=== PATIENT | female | born 1975 | race Caucasian/White ===

== ENCOUNTER 2019-07-13 16:34 | Emergency (ER) | payer OTHER, SELFPAY ==
--- NOTE | 2019-07-13 16:58 | ER ---
Nurse's Notes [facility] Name: Musa Sharif Age: 44 yrs Sex: Female : 1975 Arrival Date: 07/13/2019 Time: 16:36 Bed Waiting Private MD: Ellie Tran H Diagnosis: Scabies Presentation: 07/13 16:46 Presenting complaint: Scabies rash x 5 months. Transition of care: patient was not hb received from another setting of care. Onset of symptoms is unknown. Risk Assessment: Do you want to hurt yourself or someone else? Patient reports no desire to harm self or others. Initial Sepsis Screen: Does the patient meet any 2 criteria? No. Patient's initial sepsis screen is negative. Does the patient have a suspected source of infection? No. Patient's initial sepsis screen is negative. Care prior to arrival: None. 16:46 Method Of Arrival: Ambulatory hb 16:46 Acuity: CHE 4 hb Historical: - Allergies: 16:47 Erythromycin; hb - PMHx: 16:47 Hypertension; Lupus; hb - PSHx: 16:47 ; Cholecystectomy; hb - Immunization history:: Adult Immunizations up to date. - Social history:: Smoking status: Patient/guardian denies using tobacco. - Ebola Screening: : No symptoms or risks identified at this time. Vital Signs: 16:47 BP 148 / 68; Pulse 88; Resp 16; Temp 97.8; Pulse Ox 100% on R/A; Weight 99.79 kg; hb Height 5 ft. 7 in. (170.18 cm); Pain 4/10; 16:47 Body Mass Index 34.46 (99.79 kg, 170.18 cm) hb ED Course: 16:36 Patient arrived in ED. mr 16:36 Ellie Tran DO is Private Physician. mr 16:47 Triage completed. hb 16:47 Arm band placed on. hb 16:51 Nena Seymour FNP-C is PHCP. snw 16:51 Richardson Robbins MD is Attending Physician. snw 16:52 PHCP role handed off by Nena Seymour FNP-C kb 16:52 Jessy Castillo FNP-C is PHCP. kb 17:15 Mcnair, Lila, RN is Primary Nurse. hb Administered Medications: No medications were administered Outcome: 16:57 Discharge ordered by . kb 17:15 Patient left the ED. hb Signatures: Jessy Castillo, ANABELL-C RESIDENTIAL SPECIALIST-Ckb Nena Seymour FNP-C RESIDENTIAL SPECIALIST-Csnw Kenia Ortiz mr Lila Mcnair, RN RN hb Corrections: (The following items were deleted from the chart) 16:51 16:47 BP 148 / 68; Pulse 88bpm; Resp 16bpm; Pulse Ox 100% RA; Temp 97.8F; 108.86 kg; hb Height 5 ft. 7 in.; BMI: 37.5; Pain 4/10; hb
--- NOTE | 2019-07-13 16:58 | EDPHYS ---
Physician Documentation [facility] Name: Musa Sharif Age: 44 yrs Sex: Female : 1975 Arrival Date: 07/13/2019 Time: 16:36 Bed Waiting Private MD: Ellie Tran H ED Physician Richardson Robbins HPI: 07/13 17:26 This 44 yrs old Female presents to ER via Ambulatory with complaints of Rash. kb 17:26 The patient's rash thought to be caused by scabies. The rash is located on the body kb diffusely. The rash can be described as crusted, erythematous, patchy. Onset: The symptoms/episode began/occurred 1 year(s) ago. Associated signs and symptoms: Pertinent positives: fever. Severity of symptoms: At their worst the symptoms were severe in the emergency department the symptoms are unchanged. Treatment given at home: permetherine. The patient has not experienced similar symptoms in the past. The patient has not recently seen a physician. Pt reports she got scabies while in correction last July. States she has tried permetherine cream multiple times without relief and tried the ivermectin pills (one dose Q week for 3 weeks). Requests admission for scabies. EDucated that there is not an indication for admission for scabies that have been resistant to previous treatment. Pt has looked on CDC and wants the 7 dose course of ivermectin. Historical: - Allergies: 16:47 Erythromycin; hb - PMHx: 16:47 Hypertension; Lupus; hb - PSHx: 16:47 ; Cholecystectomy; hb - Immunization history:: Adult Immunizations up to date. - Social history:: Smoking status: Patient/guardian denies using tobacco. - Ebola Screening: : No symptoms or risks identified at this time. ROS: 17:29 Constitutional: Negative for fever, chills, and weight loss, ENT: Negative for injury, kb pain, and discharge, Neck: Negative for injury, pain, and swelling, Cardiovascular: Negative for chest pain, palpitations, and edema, Respiratory: Negative for shortness of breath, cough, wheezing, and pleuritic chest pain, Abdomen/GI: Negative for abdominal pain, nausea, vomiting, diarrhea, and constipation, MS/Extremity: Negative for injury and deformity, Neuro: Negative for headache, weakness, numbness, tingling, and seizure. 17:29 Skin: Positive for rash, diffusely. Exam: 17:29 Constitutional: This is a well developed, well nourished patient who is awake, alert, kb and in no acute distress. Head/Face: Normocephalic, atraumatic. ENT: Nares patent. No nasal discharge, no septal abnormalities noted. Tympanic membranes are normal and external auditory canals are clear. Oropharynx with no redness, swelling, or masses, exudates, or evidence of obstruction, uvula midline. Mucous membranes moist. Neck: Trachea midline, no thyromegaly or masses palpated, and no cervical lymphadenopathy. Supple, full range of motion without nuchal rigidity, or vertebral point tenderness. No Meningismus. Chest/axilla: Normal chest wall appearance and motion. Nontender with no deformity. No lesions are appreciated. Cardiovascular: Regular rate and rhythm with a normal S1 and S2. No gallops, murmurs, or rubs. Normal PMI, no JVD. No pulse deficits. Respiratory: Lungs have equal breath sounds bilaterally, clear to auscultation and percussion. No rales, rhonchi or wheezes noted. No increased work of breathing, no retractions or nasal flaring. Abdomen/GI: Soft, non-tender, with normal bowel sounds. No distension or tympany. No guarding or rebound. No evidence of tenderness throughout. MS/ Extremity: Pulses equal, no cyanosis. Neurovascular intact. Full, normal range of motion. Neuro: Awake and alert, GCS 15, oriented to person, place, time, and situation. Cranial nerves II-XII grossly intact. Motor strength 5/5 in all extremities. Sensory grossly intact. Cerebellar exam normal. Normal gait. 17:29 Skin: scabies, and is diffusely located. Vital Signs: 16:47 BP 148 / 68; Pulse 88; Resp 16; Temp 97.8; Pulse Ox 100% on R/A; Weight 99.79 kg; hb Height 5 ft. 7 in. (170.18 cm); Pain 4/10; 16:47 Body Mass Index 34.46 (99.79 kg, 170.18 cm) hb MDM: 16:57 Patient medically screened. kb 17:29 Data reviewed: vital signs, nurses notes. Data interpreted: Pulse oximetry: on room air kb is 100 %. Interpretation: normal. Counseling: I had a detailed discussion with the patient and/or guardian regarding: the historical points, exam findings, and any diagnostic results supporting the discharge/admit diagnosis, the need for outpatient follow up, a certified cytotechnologist, to return to the emergency department if symptoms worsen or persist or if there are any questions or concerns that arise at home. Administered Medications: No medications were administered Disposition: 18:41 Co-signature as Attending Physician, Richardson Robbins MD. rn Disposition: 07/13/19 16:57 Discharged to Home. Impression: Scabies. - Condition is Stable. - Discharge Instructions: Scabies, Adult. - Prescriptions for ivermectin 3 mg Oral tablet - take 6 tablets by ORAL route as directed Take dose on days 1,2,8,9,15,22, and 29; 42 tablet. - Medication Reconciliation Form, Thank You Letter, Antibiotic Education, Prescription Opioid Use form. - Follow up: Emergency Department; When: As needed; Reason: Worsening of condition. Follow up: Private Physician; When: 2 - 3 days; Reason: Recheck today's complaints, Continuance of care, Re-evaluation by your physician. Signatures: Jessy Castillo, PRIVATE BANKER-C PRIVATE BANKER-Ckb Richardson Robbins MD MD rn Baxter, Heather, RN RN hb Corrections: (The following items were deleted from the chart) 17:15 16:57 07/13/2019 16:57 Discharged to Home. Impression: Scabies. Condition is Stable. hb Forms are Medication Reconciliation Form, Thank You Letter, Antibiotic Education, Prescription Opioid Use. Follow up: Emergency Department; When: As needed; Reason: Worsening of condition. Follow up: Private Physician; When: 2 - 3 days; Reason: Recheck today's complaints, Continuance of care, Re-evaluation by your physician. kb
[2019-07-13 17:20] VITALS: BP 148/68; TEMP 97.8; O2SAT 100
== END 2019-07-13 17:15 | disposition home or self-care (01) ==
LOC: ER 16:34
DX: B86 Scabies (principal); I10 Essential (primary) hypertension; Z88.3 Allergy status to other anti-infective agents
CPT/HCPCS: 99281

== ENCOUNTER 2020-10-03 17:46 | Emergency (ER) | payer SELFPAY ==
--- NOTE | 2020-10-03 18:21 | EDPHYS ---
Physician Documentation [facility] Name: Musa Sharif Age: 45 yrs Sex: Female : 1975 Arrival Date: 10/03/2020 Time: 17:47 Bed Waiting Private MD: ED Physician Chetan Pierce HPI: 10/03 19:43 This 45 yrs old Female presents to ER via Ambulatory with complaints of snw Scabies. 19:43 Onset: The symptoms/episode began/occurred gradually, and became persistent. Associated snw signs and symptoms: Pertinent positives: pruritic rash. Modifying factors: the patient symptoms are aggravated by dx of Lupus. The patient has experienced similar episodes in the past, chronically. It is unknown whether or not the patient has recently seen a physician. Pt states she is using Elimite every day, Ivermectin weekly for a long time and also taking daily bleach baths and placing plastic gloves on hands and feet. Encouraged pt to see Derm. Stop anti-parasitic medications as they are toxic. Pt swears she has scabies and is upset I will not give script for Elimite and Ivermectin. Historical: - Allergies: 17:49 Erythromycin; sv - PMHx: 17:49 Hypertension; Lupus; sv - PSHx: 17:49 ; Cholecystectomy; sv ROS: 19:43 Constitutional: Negative for fever, chills, and weight loss, Eyes: Negative for injury, snw pain, redness, and discharge, ENT: Negative for injury, pain, and discharge, Neck: Negative for injury, pain, and swelling, Cardiovascular: Negative for chest pain, palpitations, and edema, Respiratory: Negative for shortness of breath, cough, wheezing, and pleuritic chest pain, Abdomen/GI: Negative for abdominal pain, nausea, vomiting, diarrhea, and constipation, Back: Negative for injury and pain, : Negative for injury, bleeding, discharge, and swelling, MS/Extremity: Negative for injury and deformity, Neuro: Negative for headache, weakness, numbness, tingling, and seizure, Psych: Negative for depression, anxiety, suicide ideation, homicidal ideation, and hallucinations. 19:43 Skin: Positive for rash. Exam: 19:42 Head/Face: Normocephalic, atraumatic. Eyes: Pupils equal round and reactive to light, snw extra-ocular motions intact. Lids and lashes normal. Conjunctiva and sclera are non-icteric and not injected. Cornea within normal limits. Periorbital areas with no swelling, redness, or edema. ENT: Nares patent. No nasal discharge, no septal abnormalities noted. Tympanic membranes are normal and external auditory canals are clear. Oropharynx with no redness, swelling, or masses, exudates, or evidence of obstruction, uvula midline. Mucous membranes moist. Neck: Trachea midline, no thyromegaly or masses palpated, and no cervical lymphadenopathy. Supple, full range of motion without nuchal rigidity, or vertebral point tenderness. No Meningismus. Chest/axilla: Normal chest wall appearance and motion. Nontender with no deformity. No lesions are appreciated. Cardiovascular: Regular rate and rhythm with a normal S1 and S2. No gallops, murmurs, or rubs. Normal PMI, no JVD. No pulse deficits. Respiratory: Lungs have equal breath sounds bilaterally, clear to auscultation and percussion. No rales, rhonchi or wheezes noted. No increased work of breathing, no retractions or nasal flaring. Abdomen/GI: Soft, non-tender, with normal bowel sounds. No distension or tympany. No guarding or rebound. No evidence of tenderness throughout. Back: No spinal tenderness. No costovertebral tenderness. Full range of motion. MS/ Extremity: Pulses equal, no cyanosis. Neurovascular intact. Full, normal range of motion. Neuro: Awake and alert, GCS 15, oriented to person, place, time, and situation. Cranial nerves II-XII grossly intact. Motor strength 5/5 in all extremities. Sensory grossly intact. Cerebellar exam normal. Normal gait. Psych: Awake, alert, with orientation to person, place and time. Behavior, mood, and affect are within normal limits. 19:42 Constitutional: The patient appears alert, awake, anxious. 19:42 Skin: Appearance: normal except for affected area, in heated creases of body pt has bumpy, erythematous, pruritic rash.. Vital Signs: 18:09 BP 141 / 72; Pulse 86; Resp 18; Pulse Ox 99% ; sv MDM: 18:20 Patient medically screened. snw 19:47 Data reviewed: vital signs, nurses notes. Data interpreted: Pulse oximetry: on room air snw is 99 %. Interpretation: normal. Counseling: I had a detailed discussion with the patient and/or guardian regarding: the historical points, exam findings, and any diagnostic results supporting the discharge/admit diagnosis, the need for outpatient follow up, to return to the emergency department if symptoms worsen or persist or if there are any questions or concerns that arise at home. Special discussion: I have referred the patient to see his PCP for further evaluation of high blood pressure. Based on the history and exam findings, there is no indication for further emergent testing or inpatient evaluation. I discussed with the patient/guardian the need to see the basket maker for further evaluation of the symptoms. I discussed with the patient/guardian the need to see the primary care provider for further evaluation of the symptoms. Administered Medications: 18:27 Drug: DiFLUcan 200 mg Route: PO; sv 18:27 Follow up: Response: Medication administered at discharge. sv Point of Care Testing: Blood Glucose: 18:19 Blood Glucose: 94 mg/dL; sv Ranges: Critical Glucose Levels:Adult <50 mg/dl or >400 mg/dl <40 mg/dl or >180 mg/dl Disposition: 10/04 07:56 Co-signature as Attending Physician, Chetan Pierce MD I agree with the assessment and kdr plan of care. Disposition: 10/03/20 18:20 Discharged to Home. Impression: Candidiasis. - Condition is Stable. - Discharge Instructions: Skin Yeast Infection. - Prescriptions for Vistaril 50 mg Oral capsule - take 1 capsule by ORAL route 4 times per day; 30 capsule. - Medication Reconciliation Form, Thank You Letter, Antibiotic Education, Prescription Opioid Use form. - Follow up: Bentley Reddy MD; When: 2 - 3 days; Reason: Recheck today's complaints, Continuance of care, Re-evaluation by your physician. Follow up: Connor Knott MD; When: 2 - 3 days; Reason: Recheck today's complaints, Continuance of care. Signatures: Pinky Lee RN RN sv Rittger, Kevin, MD MD kdr Nena Cristobal, ASSET AVAILABILITY LEADER-C ASSET AVAILABILITY LEADER-Csnw Corrections: (The following items were deleted from the chart) 10/03 18:27 18:20 10/03/2020 18:20 Discharged to Home. Impression: Candidiasis. Condition is sv Stable. Forms are Medication Reconciliation Form, Thank You Letter, Antibiotic Education, Prescription Opioid Use. Follow up: Bentley Reddy; When: 2 - 3 days; Reason: Recheck today's complaints, Continuance of care, Re-evaluation by your physician. Follow up: Connor Knott; When: 2 - 3 days; Reason: Recheck today's complaints, Continuance of care. snw
--- NOTE | 2020-10-03 18:21 | ER ---
Nurse's Notes [facility] Name: Musa Sharif Age: 45 yrs Sex: Female : 1975 Arrival Date: 10/03/2020 Time: 17:47 Bed Waiting Private MD: Diagnosis: Candidiasis Presentation: 10/03 17:49 Risk Assessment: Do you want to hurt yourself or someone else? Patient reports no sv desire to harm self or others. 17:49 Method Of Arrival: Ambulatory sv 17:49 Acuity: CHE 5 sv 18:08 Coronavirus screen: Client denies travel out of the [place] in the last 14 days. At this sv time, the client does not indicate any symptoms associated with coronavirus-19. Ebola Screen: No symptoms or risks identified at this time. Onset of symptoms was September 2020. 18:09 Chief complaint: Patient states: rash to under breasts, groin, neck has been ongoing sv since the beginning of Sep. Her PCP wasn't able to see her and give her a prescription. 18:09 Initial Sepsis Screen: Does the patient meet any 2 criteria? No. Patient's initial sv sepsis screen is negative. Does the patient have a suspected source of infection? No. Patient's initial sepsis screen is negative. Triage Assessment: 18:12 General: Appears in no apparent distress. uncomfortable, Behavior is calm, cooperative, sv appropriate for age. Neuro: Level of Consciousness is awake, alert, obeys commands, Oriented to person, place, time, situation, Gait is steady. Respiratory: Respiratory effort is even, unlabored, Respiratory pattern is regular, symmetrical. Derm: Reports rash. Historical: - Allergies: 17:49 Erythromycin; sv - PMHx: 17:49 Hypertension; Lupus; sv - PSHx: 17:49 ; Cholecystectomy; sv Screenin:49 Abuse screen: Denies threats or abuse. Denies injuries from another. Nutritional sv screening: No deficits noted. Tuberculosis screening: No symptoms or risk factors identified. Fall Risk None identified. Assessment: 18:27 Reassessment: Patient appears in no apparent distress at this time. No changes from sv previously documented assessment. Patient and/or family updated on plan of care and expected duration. Pain level reassessed. Patient is alert, oriented x 3, equal unlabored respirations, skin warm/dry/pink. Vital Signs: 18:09 BP 141 / 72; Pulse 86; Resp 18; Pulse Ox 99% ; sv ED Course: 17:47 Patient arrived in ED. rg4 17:49 Triage completed. sv 17:49 Arm band placed on. sv 17:49 Patient has correct armband on for positive identification. sv 18:12 Nurse Practitioner and/or Physician Engineering Scientist to see patient. sv 18:19 Nena Cristobal FNP-C is [facility]. snw 18:19 Chetan Pierce MD is Attending Physician. snw 18:19 Bentley Reddy MD is Referral Physician. snw 18:20 Connor Knott MD is Referral Physician. snw 18:26 Pinky Lee, DHARMESH is Primary Nurse. sv 18:27 No provider procedures requiring assistance completed. Patient did not have IV access sv during this emergency room visit. Administered Medications: 18:27 Drug: DiFLUcan 200 mg Route: PO; sv 18:27 Follow up: Response: Medication administered at discharge. sv Point of Care Testing: Blood Glucose: 18:19 Blood Glucose: 94 mg/dL; sv Ranges: Outcome: 18:20 Discharge ordered by MD. snw 18:27 Patient left the ED. sv 18:27 Discharged to home ambulatory. sv 18:27 Condition: stable 18:27 Discharge instructions given to patient, Instructed on discharge instructions, follow up and referral plans. medication usage, Demonstrated understanding of instructions, follow-up care, medications, Prescriptions given X 1. Signatures: Pinky Lee RN RN Nena Cristobal FNP-C FNP-Ani Mckeon rg4
[2020-10-03] MEDS ORDERED: FLUCONAZOLE 100 MG TAB ONE (18:38)
[2020-10-03 20:25] VITALS: BP 141/72; O2SAT 99
== END 2020-10-03 18:27 | disposition home or self-care (01) ==
LOC: ER 17:46
DX: B37.9 Candidiasis, unspecified (principal); I10 Essential (primary) hypertension; Z88.3 Allergy status to other anti-infective agents
CPT/HCPCS: 82947; 99283

== ENCOUNTER 2021-06-08 21:23 | Emergency (ER) | payer SELFPAY ==
[2021-06-09] MEDS ORDERED: METHYLPREDNISOLONE 40 MG INJ ONE (05:25)
[2021-06-09] MEDS ORDERED: NA CHLORIDE 0.9% 1,000 ML ONE (05:25)
[2021-06-09 06:00] LABS: Absolute Lymphocytes (CBC) 0.9 K/uL (0.7-4.9); Basophils % 0.2 % (0-1.3); Hematocrit 38.8 % (36.0-45.0); MPV 8.2 fL (7.6-11.3); RBC Red Blood Cell Count 4.57 M/uL (3.86-4.86)
[2021-06-09] MEDS ORDERED: ALBUTEROL INHALER 60 PUFF/8 GM IH ONE (06:01)
[2021-06-09] MEDS ORDERED: ACETAMINOPHEN 500 MG TAB ONE (06:13)
[2021-06-09 06:17] LABS: ALT/SGPT 26 U/L (12-78); AST/SGOT 29 U/L (15-37); Albumin 4.3 g/dL (3.4-5.0); Alkaline Phosphatase 86 U/L (45-117); BUN Blood Urea Nitrogen 10 mg/dL (7-18); Bicarbonate 25 mmol/L (21-32); Bilirubin Direct < 0.1 mg/dL (0-0.2); Bilirubin Total 0.2 mg/dL (0.2-1.0); Glucose Level 93 mg/dL (74-106); Magnesium 2.1 mg/dL (1.8-2.4); NT PRO-BNP 168 pg/mL (<125); Protein, Total 8.6 g/dL (6.4-8.2); Sodium Level 137 mmol/L (136-145); Troponin (Emerg Dept Use Only) < 0.02 ng/mL (0.0-0.045)
[2021-06-09 06:18] LABS: Potassium 2.9 mmol/L (3.5-5.1)
[2021-06-09 07:03] LABS: Protime INR 1.46
[2021-06-09] MEDS ORDERED: POTASSIUM CL SA 10 MEQ TAB PO ONE (07:22)
--- NOTE | 2021-06-09 09:12 | RAD REPORT ---
EXAM DESCRIPTION: Yovany Single View06/09/2021 5:31 am CLINICAL HISTORY: cough COMPARISON: 2015 FINDINGS: The lungs appear clear of acute infiltrate. The heart is normal size IMPRESSION: No acute abnormalities displayed
--- NOTE | 2021-06-09 09:23 | RAD REPORT ---
EXAM DESCRIPTION: CT - Chest For Pe Angio - 06/09/2021 9:01 am CLINICAL HISTORY: sob COMPARISON: None. TECHNIQUE: Dynamically enhanced axial 3 mm thick images of the chest were obtained during administra tion of <100> mL Isovue 370 IV contrast. Coronal and oblique reconstruction images were generated and reviewed. Exam utilizes a protocol for optimal evaluation of pulmonary arterial tree. Maximum intensity projections 3D imaging was utilized All CT scans are performed using dose optimization technique as appropriate and may include automated exposure control or mA/KV adjustment according to patient size. FINDINGS: A pulmonary embolus is not seen. A thoracic aortic aneurysm is not noted. A pleural effusion is not seen. A pericardial effusion is not seen. Minimal right upper lobe ground-glass opacities IMPRESSION: Negative for a pulmonary embolism. Minimal right upper lobe ground-glass opacities are nonspecific and may indicate minimal Covid pneumo alicia or pneumonitis
[2021-06-09] MEDS ORDERED: NA CHLORIDE 0.9% 250 ML ONE (11:22)
[2021-06-09] MEDS ORDERED: CASIRIVIMAB/IMDEVIMAB 10 ML VIAL ONE (11:22)
--- NOTE | 2021-06-09 12:52 | ER ---
Nurse's Notes [facility] Name: Musa Sharif Age: 46 yrs Sex: Female : 1975 Arrival Date: 06/08/2021 Time: 21:25 Bed 13 Private MD: Diagnosis: Other specified viral diseases-COVID -19 Presentation: 06/08 22:40 Chief complaint: Patient states: sore throat , short of breath x 2 days. Coronavirus da3 screen: Client denies travel out of the [place] in the last 14 days. Client presents with at least one sign or symptom that may indicate coronavirus-19. Ebola Screen: No symptoms or risks identified at this time. 22:40 Method Of Arrival: Ambulatory da3 22:40 Acuity: CHE 3 da3 Triage Assessment: 22:42 General: Appears in no apparent distress. Behavior is calm, cooperative. da3 Historical: - Allergies: 06/09 12:09 Erythromycin; vg1 - PMHx: 12:09 Hypertension; Lupus; vg1 - Immunization history:: Client reports having NOT received the Covid vaccine. Screenin:30 Abuse screen: Denies threats or abuse. Nutritional screening: No deficits noted. bb Tuberculosis screening: No symptoms or risk factors identified. Fall Risk None identified. Assessment: 03:30 General: Appears in no apparent distress. uncomfortable, ill, Behavior is calm, bb cooperative. Pain: Complains of pain in all over. Neuro: Level of Consciousness is awake, alert, obeys commands, Oriented to person, place, time, situation. Cardiovascular: Capillary refill < 3 seconds Patient's skin is warm and dry. Respiratory: Reports cough that is Respiratory effort is even, unlabored, Respiratory pattern is regular. GI: No deficits noted. Derm: Skin is pink, warm \\T\\ dry. Musculoskeletal: Circulation, motion, and sensation intact. 05:45 Reassessment: No changes from previously documented assessment. ch4 07:02 Reassessment: Patient is alert, oriented x 3, equal unlabored respirations, skin bb warm/dry/pink. pt resting quietly, IV site intact with fluids running. 07:40 Reassessment: Patient appears in no apparent distress at this time. Patient and/or aj2 family updated on plan of care and expected duration. Pain level reassessed. Patient is alert, oriented x 3, equal unlabored respirations, skin warm/dry/pink. 12:06 Reassessment: Patient appears in no apparent distress at this time. No changes from vg1 previously documented assessment. Patient and/or family updated on plan of care and expected duration. Pain level reassessed. Patient is alert, oriented x 3, equal unlabored respirations, skin warm/dry/pink. Pt c/o body aches/headache, rates pain 8/10. Provider notified. Respiratory: Airway is patent Respiratory effort is even, unlabored. Derm: Skin is intact, Skin is pink, warm \\T\\ dry. 12:58 Reassessment: Patient appears in no apparent distress at this time. Patient and/or vg1 family updated on plan of care and expected duration. Pain level reassessed. Patient is alert, oriented x 3, equal unlabored respirations, skin warm/dry/pink. Pt up for d/c, currently waiting for REGEN COV to complete, then one hour of monitoring before pt is released home. 14:37 Reassessment: Patient appears in no apparent distress at this time. Patient and/or vg1 family updated on plan of care and expected duration. Pain level reassessed. Patient is alert, oriented x 3, equal unlabored respirations, skin warm/dry/pink. Vital Signs: 06/08 22:42 BP 117 / 74; Pulse 85; Resp 20; Temp 98.1; Pulse Ox 100% on R/A; da3 06/09 04:42 BP 185 / 87; Pulse 91; Resp 16; Temp 99.5(TE); Pulse Ox 100% on R/A; tt3 05:30 BP 151 / 79; Pulse 86; Resp 15; ch4 05:38 Resp 15; Pulse Ox 99% on R/A; ch4 07:03 BP 158 / 75; Pulse 97; Resp 18 S; Pulse Ox 100% on R/A; bb 07:23 BP 147 / 76; Pulse 84; Resp 16; Pulse Ox 98% on R/A; dh3 11:45 BP 146 / 82; Pulse 80; Resp 20; Pulse Ox 99% on R/A; vg1 12:00 BP 144 / 80; Pulse 82; Resp 22; Pulse Ox 98% on R/A; vg1 ED Course: 06/08 21:25 Patient arrived in ED. wm 22:42 Triage completed. da3 06/09 03:30 Patient has correct armband on for positive identification. bb 03:39 Jorge Purvis MD is Attending Physician. [facility] 04:43 Dinorah Jacobo RN is Primary Nurse. bb 05:05 Basic Metabolic Panel Sent. ch4 05:26 XRAY Chest (1 view) Sent. ch4 05:27 Throat Culture Sent. ch4 05:32 XRAY Chest (1 view) In Process Unspecified. EDMS 05:44 COVID-19 : Document "Date of Symptom Onset" if Symptomatic. Sent. ch4 05:44 Inserted saline lock: 24 gauge in right wrist, using aseptic technique. ch4 07:42 Attending Physician role handed off by Jorge Purvis MD ma2 07:42 Kleber Vazquez MD is Attending Physician. ma2 07:45 Missed attempt(s): 20 gauge in right antecubital area. Bleeding controlled, band aid dh3 applied, catheter tip intact. 08:05 Missed attempt(s): 20 gauge in left antecubital area. Bleeding controlled, band aid dh3 applied, catheter tip intact. 08:58 Inserted saline lock: 22 gauge in right antecubital area, using aseptic technique. ss ,using aseptic technique. ultrasound guide. Blood collected. 09:00 CT Chest For PE Angio In Process Unspecified. EDMS 10:20 Inserted U/S guided by Jamila BARROSO. aj2 12:10 No provider procedures requiring assistance completed. vg1 14:37 IV discontinued, intact, bleeding controlled, No redness/swelling at site. Pressure vg1 dressing applied. Administered Medications: 05:38 Drug: Albuterol HFA Inhaler 2 puffs Route: Inhalation; ch4 07:02 Follow up: Response: No adverse reaction bb 05:43 Drug: NS 0.9% 1000 ml Route: IV; Rate: 1000 ml; Site: right wrist; ch4 05:43 Drug: SOLU-Medrol (methylPrednisoLONE) 80 mg Route: IVP; Site: right wrist; ch4 07:02 Follow up: Response: No adverse reaction bb 05:51 Drug: Tylenol 1000 mg Route: PO; ch4 07:02 Follow up: Response: No adverse reaction bb 07:02 Drug: Potassium Chloride 40 mEq Route: PO; bb 12:06 Follow up: Response: No adverse reaction vg1 12:05 Drug: REGEN-COV Dose Pack 120 mg/mL-120 mg/mL (EUA) 1 application Route: IV; Rate: 120 vg1 mg/hr; Site: right forearm; 13:05 Follow up: IV Status: Completed infusion; IV Intake: 260ml vg1 Intake: 13:05 IV: 260ml; Total: 260ml. vg1 Outcome: 12:51 Discharge ordered by . [email or web address] 14:37 Discharged to home ambulatory. vg1 14:37 Condition: stable 14:37 Discharge instructions given to patient, Instructed on discharge instructions, follow up and referral plans. medication usage, Demonstrated understanding of instructions, follow-up care, medications, Prescriptions given X 4. 14:38 Patient left the ED. vg1 Signatures: Dispatcher [employer] EDMS Dinorah Jacobo RN RN Jamila Mcghee RN RN ss Herrera, Deanna 3 Kleber Vazquez MD MD ma2 Garcia, Victoria, RN RN vg1 Jorge Purvis MD MD 7 Sudeep Chu 3 Rita Amador David, RN RN da3 Johana Muller RN RN ch4 Sonam Dhillon2 Corrections: (The following items were deleted from the chart) 08:18 08:17 Missed attempt(s): 20 gauge in right antecubital area. Bleeding controlled, band dh3 aid applied, catheter tip intact. dh3 12:09 12:06 Reassessment: Patient appears in no apparent distress at this time. No changes vg1 from previously documented assessment. Patient and/or family updated on plan of care and expected duration. Pain level reassessed. Patient is alert, oriented x 3, equal unlabored respirations, skin warm/dry/pink. vg1 12:09 12:06 Respiratory: Airway is patent Respiratory effort is even, unlabored, vg1 vg1
--- NOTE | 2021-06-09 12:52 | EDPHYS ---
Physician Documentation [facility] Name: Musa Sharif Age: 46 yrs Sex: Female : 1975 Arrival Date: 06/08/2021 Time: 21:25 Bed 13 Private MD: ED Physician Kleber Vazquez HPI: 06/09 04:45 This 46 yrs old Female presents to ER via Ambulatory with complaints of mh7 Fever, BODY ACHES, FEELS LIKE "IM BREATHING THRU A STRAW". 04:45 The patient reports fever, not measured (subjective). Onset: The symptoms/episode mh7 began/occurred 3 day(s) ago. Modifying factors: The patient has had contact with sick son. Associated signs and symptoms: Pertinent positives: cough, that is dry, myalgias, runny nose, shortness of breath, Pertinent negatives: abdominal pain, altered mental status, arthralgias, backache, chest pain, chills, diarrhea, earache, headache, hemoptysis, nausea, night sweats, sinus drainage, skin rash, swelling, vomiting. Severity of symptoms: At their worst the symptoms were moderate 2 day(s) ago, in the emergency department the symptoms are unchanged. Historical: - Allergies: 12:09 Erythromycin; vg1 - PMHx: 12:09 Hypertension; Lupus; vg1 - Immunization history:: Client reports having NOT received the Covid vaccine. ROS: 04:45 Eyes: Negative for injury, pain, redness, and discharge, Neck: Negative for injury, mh7 pain, and swelling, Cardiovascular: Negative for chest pain, palpitations, and edema, Abdomen/GI: Negative for abdominal pain, nausea, vomiting, diarrhea, and constipation, Back: Negative for injury and pain, : Negative for injury, bleeding, discharge, and swelling, MS/Extremity: Negative for injury and deformity, Skin: Negative for injury, rash, and discoloration, Neuro: Negative for headache, weakness, numbness, tingling, and seizure, Psych: Negative for depression, anxiety, suicide ideation, homicidal ideation, and hallucinations, Allergy/Immunology: Negative for hives, rash, and allergies, Endocrine: Negative for neck swelling, polydipsia, polyuria, polyphagia, and marked weight changes, Hematologic/Lymphatic: Negative for swollen nodes, abnormal bleeding, and unusual bruising. Exam: 04:45 Head/Face: Normocephalic, atraumatic. Eyes: Pupils equal round and reactive to light, mh7 extra-ocular motions intact. Lids and lashes normal. Conjunctiva and sclera are non-icteric and not injected. Cornea within normal limits. Periorbital areas with no swelling, redness, or edema. ENT: Nares patent. No nasal discharge, no septal abnormalities noted. Tympanic membranes are normal and external auditory canals are clear. Oropharynx with no redness, swelling, or masses, exudates, or evidence of obstruction, uvula midline. Mucous membranes moist. Neck: Trachea midline, no thyromegaly or masses palpated, and no cervical lymphadenopathy. Supple, full range of motion without nuchal rigidity, or vertebral point tenderness. No Meningismus. Chest/axilla: Normal chest wall appearance and motion. Nontender with no deformity. No lesions are appreciated. Cardiovascular: Regular rate and rhythm with a normal S1 and S2. No gallops, murmurs, or rubs. Normal PMI, no JVD. No pulse deficits. Respiratory: Lungs have equal breath sounds bilaterally, clear to auscultation and percussion. No rales, rhonchi or wheezes noted. No increased work of breathing, no retractions or nasal flaring. Abdomen/GI: Soft, non-tender, with normal bowel sounds. No distension or tympany. No guarding or rebound. No evidence of tenderness throughout. Back: No spinal tenderness. No costovertebral tenderness. Full range of motion. Skin: Warm, dry with normal turgor. Normal color with no rashes, no lesions, and no evidence of cellulitis. MS/ Extremity: Pulses equal, no cyanosis. Neurovascular intact. Full, normal range of motion. Neuro: Awake and alert, GCS 15, oriented to person, place, time, and situation. Cranial nerves II-XII grossly intact. Motor strength 5/5 in all extremities. Sensory grossly intact. Cerebellar exam normal. Normal gait. Psych: Awake, alert, with orientation to person, place and time. Behavior, mood, and affect are within normal limits. 04:45 Constitutional: The patient appears in no acute distress, alert, awake, uncomfortable. Vital Signs: 06/08 22:42 BP 117 / 74; Pulse 85; Resp 20; Temp 98.1; Pulse Ox 100% on R/A; da3 06/09 04:42 BP 185 / 87; Pulse 91; Resp 16; Temp 99.5(TE); Pulse Ox 100% on R/A; tt3 05:30 BP 151 / 79; Pulse 86; Resp 15; ch4 05:38 Resp 15; Pulse Ox 99% on R/A; ch4 07:03 BP 158 / 75; Pulse 97; Resp 18 S; Pulse Ox 100% on R/A; bb 07:23 BP 147 / 76; Pulse 84; Resp 16; Pulse Ox 98% on R/A; dh3 11:45 BP 146 / 82; Pulse 80; Resp 20; Pulse Ox 99% on R/A; vg1 12:00 BP 144 / 80; Pulse 82; Resp 22; Pulse Ox 98% on R/A; vg1 MDM: 07:09 Transition of care: After a detail discussion of the patient's case, care is 7 transferred to Kleber Vazquez MD. 12:51 Differential diagnosis: viral Infection, URI, bronchitis, pneumonia. Data reviewed: [email or web address] vital signs, nurses notes. Counseling: I had a detailed discussion with the patient and/or guardian regarding: the historical points, exam findings, and any diagnostic results supporting the discharge/admit diagnosis, the presence of at least one elevated blood pressure reading (>120/80) during this emergency department visit, the need for outpatient follow up. Response to treatment: the patient's symptoms have markedly improved after treatment. 12:51 Patient medically screened. [email or web address] 06/08 22:46 Order name: Flu; Complete Time: 03:40 [facility] 06/08 22:46 Order name: Strep; Complete Time: 03:40 [facility] 06/08 22:49 Order name: COVID-19 : Document "Date of Symptom Onset" if Symptomatic. [facility] 06/09 00:13 Order name: Throat Culture [facility] 06/09 00:15 Order name: SARS-COV-2 RT PCR; Complete Time: 03:40 [facility] 06/09 04:57 Order name: Basic Metabolic Panel [facility] 06/09 04:57 Order name: CBC with Diff; Complete Time: 06:18 [facility] 06/09 04:57 Order name: LFT's; Complete Time: 06:24 [facility] 06/09 04:57 Order name: Magnesium; Complete Time: 06:24 7 06/09 04:57 Order name: NT PRO-BNP; Complete Time: 06:24 7 06/09 04:57 Order name: PT-INR; Complete Time: 07:17 7 06/09 04:57 Order name: Troponin (emerg Dept Use Only); Complete Time: 06:24 7 06/09 04:57 Order name: Basic Metabolic Panel; Complete Time: 06:24 EDMS 06/08 22:46 Order name: Droplet/Contact Precautions; Complete Time: 05:04 da3 06/08 22:46 Order name: Labs collected and sent; Complete Time: 05:04 da3 06/08 22:46 Order name: O2 Per Protocol; Complete Time: 05:04 3 06/09 04:57 Order name: XRAY Chest (1 view); Complete Time: 09:27 7 06/09 04:57 Order name: EKG; Complete Time: 04:58 7 06/09 04:57 Order name: Lactate; Complete Time: 06:24 7 06/09 04:57 Order name: Procalcitonin; Complete Time: 06:53 7 06/09 06:57 Order name: D-Dimer; Complete Time: 07:17 EDMS 06/09 07:17 Order name: CT Chest For PE Angio; Complete Time: 09:27 tn2 06/09 04:57 Order name: Cardiac monitoring; Complete Time: 05:05 7 06/09 04:57 Order name: EKG - Nurse/Tech; Complete Time: 05:26 7 06/09 04:57 Order name: IV Saline Lock; Complete Time: 05:04 7 06/09 04:57 Order name: O2 Sat Monitoring; Complete Time: 05:05 mh7 Administered Medications: 05:38 Drug: Albuterol HFA Inhaler 2 puffs Route: Inhalation; ch4 07:02 Follow up: Response: No adverse reaction bb 05:43 Drug: NS 0.9% 1000 ml Route: IV; Rate: 1000 ml; Site: right wrist; ch4 05:43 Drug: SOLU-Medrol (methylPrednisoLONE) 80 mg Route: IVP; Site: right wrist; ch4 07:02 Follow up: Response: No adverse reaction bb 05:51 Drug: Tylenol 1000 mg Route: PO; ch4 07:02 Follow up: Response: No adverse reaction bb 07:02 Drug: Potassium Chloride 40 mEq Route: PO; bb 12:06 Follow up: Response: No adverse reaction vg1 12:05 Drug: REGEN-COV Dose Pack 120 mg/mL-120 mg/mL (EUA) 1 application Route: IV; Rate: 120 vg1 mg/hr; Site: right forearm; 13:05 Follow up: IV Status: Completed infusion; IV Intake: 260ml vg1 Disposition Summary: 06/09/21 12:51 Discharge Ordered Location: Home ma2 Condition: Stable ma2 Diagnosis - Other specified viral diseases - COVID -19 ma2 Followup: ma2 - With: Private Physician - When: Tomorrow - Reason: Continuance of care Discharge Instructions: - COVID-19 Frequently Asked Questions [email or web address] - 10 Things You Can Do to Manage Your COVID-19 Symptoms at Home - [facility] - Discharge Summary Sheet [facility] - COVID-19: Keep Your Baby Healthy and Safe - [place] [id number] Forms: - SBAR form aj2 - Medication Reconciliation Form ma2 - Thank You Letter ma2 - Antibiotic Education ma2 - Prescription Opioid Use tn2 Prescriptions: - Diclofenac Sodium 75 mg Oral Tablet Sustained Release - take 1 tablet by ORAL route 2 times per day; 30 tablet; Refills: 0, Product ma2 Selection Permitted - Zofran 4 mg Oral Tablet - take 1 tablet by ORAL route every 12 hours As needed; 20 tablet; Refills: 0, ma2 Product Selection Permitted - Zithromax Z-Albino 250 mg Oral Tablet - take 1 tablet by ORAL route as directed for 5 days Day 1 - take two (2) tablets ma2 one time. Day 2, 3, 4 , 5 take one (1) tablet once daily.; 6 tablet; Refills: 0, Product Selection Permitted - Medrol (Albino) 4 mg Oral Tablets, Dose Pack - take 1 tablet by ORAL route as directed - follow package instructions; 1 ma2 packet; Refills: 0, Product Selection Permitted Signatures: Dispatcher [employer] Dinorah Palacio RN RN bb Alzahri, Mohammad, MD MD ma2 Rocio Sharif RN RN vg1 Jorge Purvis MD MD 7 Reuben Sheets RN RN 3 Johana Muller RN RN ch4 Jenkins, Angelea 2 Corrections: (The following items were deleted from the chart) 06/08 23:18 22:50 CORONAVIRUS ordered. EDMS EDMS 06/09 06:57 06:39 D-DIMER+COAG.LAB.CASANDRAZ ordered. EDMS EDMS
[2021-06-09 14:46] VITALS: TEMP 99.5
[2021-06-09 14:53] VITALS: BP 144/80; O2SAT 98
== END 2021-06-09 14:38 | disposition home or self-care (01) ==
LOC: ER 21:23
DX: U07.1 COVID-19 (principal); I10 Essential (primary) hypertension; Z88.3 Allergy status to other anti-infective agents
CPT/HCPCS: 36415; 71045; 71275; 80048; 80076; 83605; 83735; 83880; 84145; 84484; 85025; 85379; 85610; 87070; 87081; 87804; 93005; 96365; 96375; 99284; J2920; J7030; J7050; Q9967; U0003

== ENCOUNTER 2023-04-22 14:32 | Emergency (ER) | payer OTHER, SELFPAY ==
--- OUTSIDE RECORDS SUMMARY | 2023-04-22 14:35 | XMS REPORT | Continuity of Care Document ---
:1975 Author Organization [facility] t Address [address] [place] [address] [place] [id number] Care Team Providers Name Role Phone Mis Eldridge Primary Care Physician [phone] Mis Martin APRN Attending Clinician Unavailable Jean-Claude Carr Attending Clinician Unavailable Amaris Louie Admitting Clinician Unavailable KNOW, DOES_NOT Admitting Clinician Unavailable Payers Payer Name Policy Type Policy Number Effective Date Expiration Date S ource Problems This patient has no known problems. Allergies, Adverse Reactions, Alerts Allergy Allergy Status Severity Reaction(s) Onset Inactive Treating Comm ents Source Name Type Date Date Clinician Isabella Darlingensi Active ycin - ty to 8-16 Oral adverse 00:00: reaction 00 to drug Azithrom Propensi Active ycin ty to 8-13 adverse 00:00: reaction 00 to drug Medications Ordered Filled Start Stop Current Ordering Indication Dosage Frequency Signature Comments Components Source Medication Medication Date Date Medication? Clinician (SIG) Name Name TAKE 2021-10 No TABLET 0-26 DAILY. 00:00: 00 TAKE 0 No CAPSULE 8-23 TWICE 00:00: DAILY. 00 TAKE 1 2022-0 No 100 CAPSULE 8-23 TWICE 00:00: DAILY. 00 Bactrim DS 1-1 No 1mg 800 mg-160 0-12 mg tablet 00:00: 00 Bactrim DS 2020-1 No 1mg 800 mg-160 0-12 mg tablet 00:00: 00 metronidazo 1-0 No 1% le 0.75 % 6-03 topical gel 00:00: 00 Dose 2021-0 No Unknown 6-03 00:00: 00 fluconazole 1-0 No 2mg 200 mg 6-03 tablet 00:00: 00 metronidazo 1-0 No 1% le 0.75 % 6-03 topical gel 00:00: 00 nystatin-tr 1-0 No 1unit/g iamcinolone 6-03 -% 100,000 00:00: unit/g-0.1 00 % topical cream fluconazole 1-0 No 2mg 200 mg 6-03 tablet 00:00: 00 metronidazo 1-0 No 1% le 0.75 % 5-10 topical gel 00:00: 00 metronidazo 1-0 No 1% le 0.75 % 5-10 topical gel 00:00: 00 metronidazo 1-0 No 1% le 0.75 % 4-15 topical gel 00:00: 00 nystatin-tr 1-0 No 1unit/g iamcinolone 4-15 -% 100,000 00:00: unit/g-0.1 00 % topical cream fluconazole 1-0 No 2mg 200 mg 4-15 tablet 00:00: 00 metronidazo 1-0 No 1% le 0.75 % 4-15 topical gel 00:00: 00 nystatin-tr 1-0 No 1unit/g iamcinolone 4-15 -% 100,000 00:00: unit/g-0.1 00 % topical cream fluconazole 1-0 No 2mg 200 mg 4-15 tablet 00:00: 00 fluconazole 2021-0 No 1mg 150 mg 4-14 tablet 00:00: 00 fluconazole 2021-0 No 1mg 150 mg 4-14 tablet 00:00: 00 nystatin-tr 2021-0 No 1unit/g iamcinolone 3-09 -% 100,000 00:00: unit/g-0.1 00 % topical cream nystatin-tr 1-0 No 1unit/g iamcinolone 3-09 -% 100,000 00:00: unit/g-0.1 00 % topical cream fluconazole 1-0 No 1mg 150 mg 2-26 tablet 00:00: 00 fluconazole 1-0 No 1mg 150 mg 2-26 tablet 00:00: 00 nystatin-tr 1-0 No 1unit/g iamcinolone 1-29 -% 100,000 00:00: unit/g-0.1 00 % topical cream fluconazole 1-0 No 1mg 150 mg 1-29 tablet 00:00: 00 nystatin-tr 1-0 No 1unit/g iamcinolone 1-29 -% 100,000 00:00: unit/g-0.1 00 % topical cream fluconazole 1-0 No 1mg 150 mg 1-29 tablet 00:00: 00 nystatin-tr 1-0 No 1unit/g iamcinolone 1-18 -% 100,000 00:00: unit/g-0.1 00 % topical cream nystatin-tr 1-0 No 1unit/g iamcinolone 1-18 -% 100,000 00:00: unit/g-0.1 00 % topical cream fluconazole 1-0 No 1mg 150 mg 1-07 tablet 00:00: 00 hydroxyzine 1-0 No 1mg pamoate 50 1-07 mg capsule 00:00: 00 fluconazole 1-0 No 1mg 150 mg 1-07 tablet 00:00: 00 hydroxyzine 1-0 No 1mg pamoate 50 1-07 mg capsule 00:00: 00 clotrimazol 2019-1 No 1% e 1 % 2-29 topical 00:00: ointment 00 terbinafine 2020-1 No 1mg HCl 250 mg 2-29 tablet 00:00: 00 hydroxyzine 2020-1 No 1mg HCl 25 mg 2-29 tablet 00:00: 00 clotrimazol 2019-1 No 1% e 1 % 2-29 topical 00:00: ointment 00 terbinafine 2019-1 No 1mg HCl 250 mg 2-29 tablet 00:00: 00 hydroxyzine 2019-1 No 1mg HCl 25 mg 2-29 tablet 00:00: 00 ivermectin 2020-1 No 6mg 3 mg tablet 2 00:00: 00 ivermectin 2020-1 No 6mg 3 mg tablet 2 00:00: 00 permethrin 2020-1 No 1% 5 % topical 2-10 cream 00:00: 00 ivermectin 2020-1 No 6mg 3 mg tablet 2-10 00:00: 00 permethrin 2020-1 No 1% 5 % topical 2-10 cream 00:00: 00 ivermectin 2020-1 No 6mg 3 mg tablet 2 00:00: 00 ivermectin 2020-0 No 6mg 3 mg tablet 7 00:00: 00 ivermectin 2020-0 No 6mg 3 mg tablet 7 00:00: 00 ivermectin 2020-0 No 6mg 3 mg tablet 7 00:00: 00 ivermectin 2020-0 No 6mg 3 mg tablet 7 00:00: 00 metoprolol 2020-0 No 1mg tartrate 25 6-29 mg tablet 00:00: 00 hydrochloro 2020-0 No 1mg thiazide 25 6-29 mg tablet 00:00: 00 ivermectin 2020-0 No 6mg 3 mg tablet 6 00:00: 00 metoprolol 2020-0 No 1mg tartrate 25 6-29 mg tablet 00:00: 00 hydrochloro 2020-0 No 1mg thiazide 25 6-29 mg tablet 00:00: 00 ivermectin 2020-0 No 6mg 3 mg tablet 6 00:00: 00 permethrin 2020-0 No 1% 5 % topical 6-09 cream 00:00: 00 permethrin 2020-0 No 1% 5 % topical 6-09 cream 00:00: 00 ivermectin 2020-0 No 6mg 3 mg tablet 6 00:00: 00 ivermectin 2020-0 No 6mg 3 mg tablet 6 00:00: 00 ivermectin 2019-1 No 6mg 3 mg tablet 0 00:00: 00 ivermectin 2019-1 No 6mg 3 mg tablet 009 00:00: 00 permethrin 2019-0 No 1% 5 % topical 8-29 cream 00:00: 00 permethrin 2019-0 No 1% 5 % topical 8-29 cream 00:00: 00 hydrochloro 2019-0 No 1mg thiazide 25 8-13 mg tablet 00:00: 00 permethrin 2019-0 No 1% 5 % topical 8-13 cream 00:00: 00 hydrochloro 2019-0 No 1mg thiazide 25 8-13 mg tablet 00:00: 00 hydrochloro 2019-0 No 1mg thiazide 25 8-13 mg tablet 00:00: 00 metoprolol 2019-0 No 1mg tartrate 25 8-13 mg tablet 00:00: 00 metoprolol 2019-0 No 1mg tartrate 25 8-13 mg tablet 00:00: 00 hydrochloro 2019-0 No 1mg thiazide 25 8-13 mg tablet 00:00: 00 permethrin 2019-0 No 1% 5 % topical 8-13 cream 00:00: 00 hydrochloro 2019-0 No 1mg thiazide 25 8-13 mg tablet 00:00: 00 hydrochloro 2019-0 No 1mg thiazide 25 8-13 mg tablet 00:00: 00 metoprolol 2019-0 No 1mg tartrate 25 8-13 mg tablet 00:00: 00 metoprolol 2019-0 No 1mg tartrate 25 8-13 mg tablet 00:00: 00 Vital Signs Vital Name Observation Time Observation Value Comments Source BP Systolic 2022-08-06 17:20:00 174 mm[Hg] BP Diastolic 2022-08-06 17:20:00 87 mm[Hg] Weight Measured 2022-08-06 17:20:00 206.00 pounds Height Measured 2022-08-06 17:20:00 63.50 inches Body Temperature 2022-08-06 17:20:00 98.20 degrees Heart Rate 2022-08-06 17:20:00 89.00 /min Respiratory Rate 2022-08-06 17:20:00 20.00 /min BP Systolic 2022-06-02 16:37:00 145 mm[Hg] BP Diastolic 2022-06-02 16:37:00 85 mm[Hg] Weight Measured 2022-06-02 16:37:00 207.20 pounds Height Measured 2022-06-02 16:37:00 63.50 inches Body Temperature 2022-06-02 16:37:00 98.60 degrees Heart Rate 2022-06-02 16:37:00 102.00 /min Respiratory Rate 2022-06-02 16:37:00 BP Systolic 2021-07-23 10:55:00 151 mm[Hg] BP Diastolic 2021-07-23 10:55:00 93 mm[Hg] Weight Measured 2021-07-23 10:55:00 207.20 pounds Height Measured 2021-07-23 10:55:00 63.50 inches Body Temperature 2021-07-23 10:55:00 98.60 degrees Heart Rate 2021-07-23 10:55:00 89.00 /min Respiratory Rate 2021-07-23 10:55:00 BP Systolic 2021-03-14 11:55:00 148 mm[Hg] BP Diastolic 2021-03-14 11:55:00 84 mm[Hg] Weight Measured 2021-03-14 11:55:00 212.00 pounds Height Measured 2021-03-14 11:55:00 63.50 inches Body Temperature 2021-03-14 11:55:00 98.60 degrees Heart Rate 2021-03-14 11:55:00 91.00 /min Respiratory Rate 2021-03-14 11:55:00 26.00 /min BP Systolic 2021-01-24 14:45:00 132 mm[Hg] BP Diastolic 2021-01-24 14:45:00 84 mm[Hg] Weight Measured 2021-01-24 14:45:00 208.80 pounds Height Measured 2021-01-24 14:45:00 63.50 inches Body Temperature 2021-01-24 14:45:00 98.30 degrees Heart Rate 2021-01-24 14:45:00 88.00 /min Respiratory Rate 2021-01-24 14:45:00 18.00 /min BP Systolic 2020-11-09 17:33:00 124 mm[Hg] BP Diastolic 2020-11-09 17:33:00 70 mm[Hg] Weight Measured 2020-11-09 17:33:00 211.00 pounds Height Measured 2020-11-09 17:33:00 63.50 inches Body Temperature 2020-11-09 17:33:00 98.40 degrees Heart Rate 2020-11-09 17:33:00 92.00 /min Respiratory Rate 2020-11-09 17:33:00 18.00 /min BP Systolic 2020-10-18 16:38:00 131 mm[Hg] BP Diastolic 2020-10-18 16:38:00 82 mm[Hg] Weight Measured 2020-10-18 16:38:00 211.40 pounds Height Measured 2020-10-18 16:38:00 63.50 inches Body Temperature 2020-10-18 16:38:00 97.20 degrees Heart Rate 2020-10-18 16:38:00 87.00 /min Respiratory Rate 2020-10-18 16:38:00 17.00 /min BP Systolic 2020-10-09 08:33:00 137 mm[Hg] BP Diastolic 2020-10-09 08:33:00 82 mm[Hg] Weight Measured 2020-10-09 08:33:00 210.80 pounds Height Measured 2020-10-09 08:33:00 63.50 inches Body Temperature 2020-10-09 08:33:00 98.40 degrees Heart Rate 2020-10-09 08:33:00 96.00 /min Respiratory Rate 2020-10-09 08:33:00 17.00 /min Respiratory Rate 2020-09-20 17:49:00 BP Systolic 2020-09-20 17:49:00 129 mm[Hg] BP Diastolic 2020-09-20 17:49:00 79 mm[Hg] Weight Measured 2020-09-20 17:49:00 209.60 pounds Height Measured 2020-09-20 17:49:00 63.50 inches Body Temperature 2020-09-20 17:49:00 97.40 degrees Heart Rate 2020-09-20 17:49:00 88.00 /min BP Systolic 2020-04-09 17:30:00 135 mm[Hg] BP Diastolic 2020-04-09 17:30:00 81 mm[Hg] Weight Measured 2020-04-09 17:30:00 205.20 pounds Height Measured 2020-04-09 17:30:00 63.50 inches Body Temperature 2020-04-09 17:30:00 98.20 degrees Heart Rate 2020-04-09 17:30:00 92.00 /min Respiratory Rate 2020-04-09 17:30:00 16.00 /min BP Systolic 2020-03-20 14:18:00 140 mm[Hg] BP Diastolic 2020-03-20 14:18:00 80 mm[Hg] Weight Measured 2020-03-20 14:18:00 205.00 pounds Height Measured 2020-03-20 14:18:00 63.50 inches Body Temperature 2020-03-20 14:18:00 98.10 degrees Heart Rate 2020-03-20 14:18:00 81.00 /min Respiratory Rate 2020-03-20 14:18:00 16.00 /min Procedures This patient has no known procedures. Plan of Care Planned Activity Planned Date Details Comments Source Goal Plan of Care Note [code = 74929-9] Goal Plan of Care Note [code = 88620-2] Goal Plan of Care Note [code = 44077-5] Goal Plan of Care Note [code = 55552-7] Goal Plan of Care Note [code = 84862-6] Goal Plan of Care Note [code = 49316-7] Goal Plan of Care Note [code = 63705-6] Goal Plan of Care Note [code = 45607-8] Goal Plan of Care Note [code = 35589-7] Goal Plan of Care Note [code = 85211-5] Goal Plan of Care Note [code = 97271-6] Goal Plan of Care Note [code = 27228-1] Goal Plan of Care Note [code = 56835-3] Goal Plan of Care Note [code = 48502-2] Goal Plan of Care Note [code = 37621-7] Goal Plan of Care Note [code = 50097-7] Goal Plan of Care Note [code = 81331-2] Goal Plan of Care Note [code = 29634-7] Goal Plan of Care Note [code = 95562-9] Goal Plan of Care Note [code = 17018-8] Goal Plan of Care Note [code = 74858-6] Goal Plan of Care Note [code = 04967-4] Goal Plan of Care Note [code = 68200-5] Goal Plan of Care Note [code = 40426-5] Goal Plan of Care Note [code = 58563-2] Goal Plan of Care Note [code = 77343-3] Goal Plan of Care Note [code = 26857-1] Goal Plan of Care Note [code = 39917-1] Goal Plan of Care Note [code = 31734-1] Goal Plan of Care Note [code = 23284-5] Encounters Start End Encounter Admission Attending Care Care Encounter Source Date/Time Date/Time Type Type Clinicians Facility Department ID 2022-10-01 2022-09-22 Inpatient FREDO Gutierrez RADI LA00 [id number] [facility] 11:00:00 09:00:00 Mis 83 [facility] 2022-09-10 2022-09-10 Outpatient [facility] [id number] [place] 17:46:39 17:46:39 1130 F [place] 2022-10-01 2022-09-10 Inpatient FREDO Carvalho RADI [id number] [facility] 12:00:00 16:00:00 Jean-Claude 94 [facility] 2022-08-11 2022-08-11 Outpatient [facility] [id number] [place] 16:29:22 16:29:22 1031 F [place] 2022-08-06 2022-08-06 Outpatient [facility] [id number] [place] 17:00:50 17:00:50 1026 F [place] 2022-08-06 2022-08-06 Outpatient [id number] 00:00:00 00:00:00 Visit [id number] 2022-06-02 2022-06-02 Outpatient [id number] 00:00:00 00:00:00 Visit [id number] Results Test Description Test Time Test Comments Results Result Comments Source COMPREHENSIVE METABOLIC PANEL 2020-10-10 00:00:00 Test Item Value Reference Range Interpretation Comme nts GLUCOSE (test code = 2217) 98 MG/DL BUN (test code = 2208) 12 MG/DL CREATININE (test code = 2214) 0.77 MG/DL eGFR AMER. (test code = 72828) 107 ML/MIN/1.73 eGFR NON- AMER. (test code = 06523) 93 ML/MIN/1.73 CALC BUN/CREAT (test code = 2235) 16 RATIO SODIUM (test code = 2231) 140 MEQ/L POTASSIUM (test code = 2228) 4.3 MEQ/L CHLORIDE (test code = 2215) 102 MEQ/L CARBON DIOXIDE (test code = 2206) 26 MEQ/L CALCIUM (test code = 2209) 9.9 MG/DL PROTEIN, TOTAL (test code = 2229) 7.0 G/DL ALBUMIN (test code = 2201) 4.7 G/DL CALC GLOBULIN (test code = 2240) 2.3 G/DL CALC A/G RATIO (test code = 2234) 2.0 RATIO BILIRUBIN, TOTAL (test code = 2207) 0.2 MG/DL ALKALINE PHOSPHATASE (test code = 2204) 73 U/L AST (test code = 2218) 20 U/L ALT (test code = 2219) 14 U/L COMPREHENSIVE METABOLIC [id number] 00:00:00 Test Item Value Reference Range Interpretation Comments GLUCOSE (test code = 2217) 98 MG/DL BUN (test code = 2208) 12 MG/DL CREATININE (test code = 2214) 0.77 MG/DL eGFR AMER. (test code 107 ML/MIN/1.73 = 62341) eGFR NON- AMER. (test 93 ML/MIN/1.73 code = 62892) CALC BUN/CREAT (test code = 16 RATIO 2235) SODIUM (test code = 2231) 140 MEQ/L POTASSIUM (test code = 2228) 4.3 MEQ/L CHLORIDE (test code = 2215) 102 MEQ/L CARBON DIOXIDE (test code = 26 MEQ/L 2206) CALCIUM (test code = 2209) 9.9 MG/DL PROTEIN, TOTAL (test code = 7.0 G/DL 2229) ALBUMIN (test code = 2201) 4.7 G/DL CALC GLOBULIN (test code = 2.3 G/DL 2240) CALC A/G RATIO (test code = 2.0 RATIO 2234) BILIRUBIN, TOTAL (test code = 0.2 MG/DL 220) ALKALINE PHOSPHATASE (test 73 U/L code = 2204) AST (test code = 2218) 20 U/L ALT (test code = 2219) 14 U/L COMPREHENSIVE METABOLIC [id number] 00:00:00 Test Item Value Reference Range Interpretation Comments GLUCOSE (test code = 2217) 98 MG/DL BUN (test code = 2208) 12 MG/DL CREATININE (test code = 2214) 0.77 MG/DL eGFR AMER. (test code 107 ML/MIN/1.73 = 58954) eGFR NON- AMER. (test 93 ML/MIN/1.73 code = 50836) CALC BUN/CREAT (test code = 16 RATIO 2235) SODIUM (test code = 2231) 140 MEQ/L POTASSIUM (test code = 2228) 4.3 MEQ/L CHLORIDE (test code = 2215) 102 MEQ/L CARBON DIOXIDE (test code = 26 MEQ/L 2205) CALCIUM (test code = 2209) 9.9 MG/DL PROTEIN, TOTAL (test code = 7.0 G/DL 2228) ALBUMIN (test code = 2201) 4.7 G/DL CALC GLOBULIN (test code = 2.3 G/DL 2239) CALC A/G RATIO (test code = 2.0 RATIO 2234) BILIRUBIN, TOTAL (test code = 0.2 MG/DL 2206) ALKALINE PHOSPHATASE (test 73 U/L code = 2204) AST (test code = 2218) 20 U/L ALT (test code = 2219) 14 U/L COMPREHENSIVE METABOLIC [id number] 00:00:00 Test Item Value Reference Range Interpretation Comments GLUCOSE (test code = 2217) 98 MG/DL BUN (test code = 2208) 12 MG/DL CREATININE (test code = 2214) 0.77 MG/DL eGFR AMER. (test code 107 ML/MIN/1.73 = 67964) eGFR NON- AMER. (test 93 ML/MIN/1.73 code = 60968) CALC BUN/CREAT (test code = 16 RATIO 2235) SODIUM (test code = 2231) 140 MEQ/L POTASSIUM (test code = 2228) 4.3 MEQ/L CHLORIDE (test code = 2215) 102 MEQ/L CARBON DIOXIDE (test code = 26 MEQ/L 2206) CALCIUM (test code = 2209) 9.9 MG/DL PROTEIN, TOTAL (test code = 7.0 G/DL 2228) ALBUMIN (test code = 2201) 4.7 G/DL CALC GLOBULIN (test code = 2.3 G/DL 2239) CALC A/G RATIO (test code = 2.0 RATIO 2233) BILIRUBIN, TOTAL (test code = 0.2 MG/DL 2206) ALKALINE PHOSPHATASE (test 73 U/L code = 220) AST (test code = 2218) 20 U/L ALT (test code = 2219) 14 U/L
--- NOTE | 2023-04-22 15:00 | RAD REPORT ---
EXAM DESCRIPTION: CT - Head Brain Wo Cont - 04/22/2023 2:53 pm CLINICAL HISTORY: HEADACHE COMPARISON: Head Brain Wo Cont dated 07/10/2016; CT MAXILLOFACIAL W WO dated 01/31/2010 TECHNIQUE: All CT scans are performed using dose optimization technique as appropriate and may inclu de automated exposure control or mA/KV adjustment according to patient size. FINDINGS: No intracranial hemorrhage, hydrocephalus or extra-axial fluid collection.No areas of brai n edema or evidence of midline shift. The paranasal sinuses and mastoids are clear. The calvarium is intact. IMPRESSION: No acute intracranial abnormality.
[2023-04-22 16:02] LABS: Absolute Lymphocytes (CBC) 2.6 K/uL (0.7-4.9); Hematocrit 38.5 % (36.0-45.0); Lymphocytes % 48.9 % (15.3-44.8); MCV 89.8 fL (80-100); MPV 7.4 fL (7.6-11.3); RBC Red Blood Cell Count 4.28 M/uL (3.86-4.86)
[2023-04-22] MEDS ORDERED: Nicardipine/NS 25 MG/250 ML KIT IV ONE (16:11)
--- NOTE | 2023-04-22 16:23 | RAD REPORT ---
EXAM DESCRIPTION: RAD - Chest Single View - 04/22/2023 4:18 pm CLINICAL HISTORY: COUGH COMPARISON: Chest Single View dated 06/09/2021; Chest Single View dated 08/24/2016; Chest Pa And Lat (2 Views) dated 06/10/2016; CHEST PA AND LAT 2 VIEW dated 03/08/2014 FINDINGS: Lines: None. Lungs: No evidence of edema or pneumonia. Pleural: No significant pleural effusions or pneumothorax. Cardiac: The heart size is within normal limits. Mediastinum: Within normal limits. Bones: No acute fractures. Other: None IMPRESSION: No acute cardiopulmonary disease.
[2023-04-22 16:27] LABS: Albumin 4.3 g/dL (3.4-5.0); Bilirubin Total 0.1 mg/dL (0.2-1.0); Potassium 3.3 mEq/L (3.5-5.1); Protein, Total 8.1 g/dL (6.4-8.2)
[2023-04-22 16:28] LABS: Thyroid Stimulating Hormone 3.91 uIU/mL (0.358-3.740)
[2023-04-22 16:30] LABS: Specific Gravity 1.012 (1.005-1.030); Urine Bacteria None Seen /HPF (<20); Urine Bilirubin NEGATIVE (Negative); Urine Blood Negative (Negative); Urine Clarity Clear (Clear); Urine Color Colorless (Yellow); Urine Glucose NEGATIVE (Negative); Urine Protein NEGATIVE (Negative); Urine RBC <5 /HPF (None Seen); Urine Urobilinogen Normal (Normal)
[2023-04-22] MEDS ORDERED: predniSONE 20 MG TAB ONE (17:12)
[2023-04-22] MEDS ORDERED: ALBUTEROL 2.5 MG/3 ML NEB SOL ONE (17:12)
[2023-04-22] MEDS ORDERED: CETIRIZINE HCL 5 MG TABLET ONE (17:12)
[2023-04-22] MEDS ORDERED: FAMOTIDINE 20 MG TAB ONE (17:13)
--- NOTE | 2023-04-22 17:43 | EDPHYS ---
Physician Documentation [facility] Name: Musa Sharif Age: 47 yrs Sex: Female : 1975 Arrival Date: 04/22/2023 Time: 14:32 Bed 8 Private MD: ED Physician Esteban Boykin HPI: 04/22 15:49 This 47 yrs old Female presents to ER via Ambulatory with complaints of Headache. snw 15:49 Onset: The symptoms/episode began/occurred acutely. snw 15:50 Onset: The symptoms/episode began/occurred at an unknown time. Severity of symptoms: At snw their worst the symptoms were moderate. The patient has experienced similar episodes in the past. It is unknown whether or not the patient has recently seen a physician. Pt is highly concerned that she has mold spores in her lungs. Pt has moved from [facility], states she has a hx of lupus but is untreated and has not had any biologics or immune modifiers.. 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 - Social history:: Smoking status: Patient denies any tobacco usage or history of. ROS: 15:54 Eyes: Negative for injury, pain, redness, and discharge, ENT: Negative for injury, snw pain, and discharge, Neck: Negative for injury, pain, and swelling, Cardiovascular: Negative for chest pain, palpitations, and edema. 15:54 Abdomen/GI: Negative for abdominal pain, nausea, vomiting, diarrhea, and constipation, Back: Negative for injury and pain, : Negative for injury, bleeding, discharge, and swelling, Skin: Negative for injury, rash, and discoloration. 15:54 Constitutional: Positive for malaise. 15:54 Respiratory: Positive for cough, shortness of breath, at rest. wheezing. 15:54 MS/extremity: Positive for right hand and left achilles with decreased ROM. 15:54 Neuro: Positive for headache. Exam: 15:48 Constitutional: This is a well developed, well nourished patient who is awake, alert, snw and in no acute distress. Head/Face: Normocephalic, atraumatic. Eyes: Pupils equal round and reactive to light, extra-ocular motions intact. Lids and lashes normal. Conjunctiva and sclera are non-icteric and not injected. Cornea within normal limits. Periorbital areas with no swelling, redness, or edema. ENT: Nares patent. No nasal discharge, no septal abnormalities noted. Tympanic membranes are normal and external auditory canals are clear. Oropharynx with no redness, swelling, or masses, exudates, or evidence of obstruction, uvula midline. Mucous membranes moist. Neck: Trachea midline, no thyromegaly or masses palpated, and no cervical lymphadenopathy. Supple, full range of motion without nuchal rigidity, or vertebral point tenderness. No Meningismus. Chest/axilla: Normal chest wall appearance and motion. Nontender with no deformity. No lesions are appreciated. 15:48 Abdomen/GI: Soft, non-tender, with normal bowel sounds. No distension or tympany. No guarding or rebound. No evidence of tenderness throughout. Back: No spinal tenderness. No costovertebral tenderness. Full range of motion. Skin: Warm, dry with normal turgor. Normal color with no rashes, no lesions, and no evidence of cellulitis. MS/ Extremity: Pulses equal, no cyanosis. Neurovascular intact. Full, normal range of motion except to right ring finger, + flexed at mip Neuro: Awake and alert, GCS 15, oriented to person, place, time, and situation. Cranial nerves II-XII grossly intact. Motor strength 5/5 in all extremities. Sensory grossly intact. Cerebellar exam normal. Normal gait. Psych: Awake, alert, with orientation to person, place and time. Behavior, mood, and affect are within normal limits. 15:48 Cardiovascular: Rate: tachycardic, Rhythm: regular, Heart sounds: normal. 15:48 Respiratory: mild respiratory distress is noted, Respirations: shallow respirations, Breath sounds: bronchial sounds, that are moderate, wheezing: Vital Signs: 14:42 BP 190 / 117; Pulse 110; Resp 17; Temp 97.6; Pulse Ox 100% on R/A; Weight 89.81 kg; ll1 Height 5 ft. 2 in. ; Pain 8/10; 16:07 BP 191 / 100; Pulse 101; Resp 16; Pulse Ox 100% on R/A; db 16:15 BP 165 / 102; Pulse 118; Resp 20; Pulse Ox 97% on R/A; db 16:30 BP 143 / 117; Pulse 113; Resp 18; Pulse Ox 99% ; db 16:39 BP 188 / 99; Pulse 122; Resp 20; Temp 98.4; Pulse Ox 98% on R/A; db 16:45 BP 157 / 108; Pulse 118; Resp 18; Pulse Ox 98% on R/A; db 17:00 BP 121 / 109; Pulse 118; Resp 20; Pulse Ox 98% on R/A; db 17:15 BP 149 / 95; Pulse 113; Resp 20; Pulse Ox 96% on R/A; db 17:30 BP 149 / 81; Pulse 112; Resp 18; Pulse Ox 97% on R/A; db 17:45 BP 152 / 85; Pulse 108; Resp 18; Pulse Ox 98% on R/A; db 14:42 Body Mass Index 36.21 (89.81 kg, 157.48 cm) ll1 14:42 Pain Scale: Adult ll1 17:00 NICARDIPINE DRIP RATE CHANGE SEE EMAR db MDM: 15:27 Patient medically screened. snw 15:50 Differential diagnosis: bronchitis, flu, URI. Differential diagnosis: SAH. Data snw reviewed: vital signs, nurses notes. Counseling: I had a detailed discussion with the patient and/or guardian regarding: the historical points, exam findings, and any diagnostic results supporting the discharge/admit diagnosis, the presence of at least one elevated blood pressure reading (>120/80) during this emergency department visit, lab results, radiology results. Special discussion: Based on the history and exam findings, there is no indication for further emergent testing or inpatient evaluation. I discussed with the patient/guardian the need to see the primary care provider for further evaluation of the symptoms. 04/22 14:37 Order name: Flu; Complete Time: 16:23 snw 04/22 14:37 Order name: Strep snw 04/22 14:37 Order name: Urine W/Microscopic (UAM); Complete Time: 16:33 snw 04/22 14:38 Order name: COVID-19 SARS RT PCR; Complete Time: 16:46 snw 04/22 15:11 Order name: CBC with Diff; Complete Time: 16:50 snw 04/22 15:11 Order name: CMP; Complete Time: 16:46 snw 04/22 15:11 Order name: CPK; Complete Time: 16:46 snw 04/22 15:11 Order name: TSH; Complete Time: 16:46 snw 04/22 16:23 Order name: Throat Culture EDMS 04/22 16:30 Order name: T4 Free; Complete Time: 16:46 EDMS 04/22 14:46 Order name: CT Head Brain wo Cont; Complete Time: 15:10 snw 04/22 15:46 Order name: Chest Single View XRAY; Complete Time: 16:24 snw 04/22 16:24 Order name: BP Recheck: q30min; Complete Time: 16:36 snw Administered Medications: 16:10 Drug: niCARdipine IV 5 mg/hr Route: IV; Rate: calculated rate; Site: right antecubital; db 16:49 Follow up: Rate change 7.5 mg/hr db 17:00 Follow up: Rate change 5 mg/hr db 17:31 Follow up: Rate change 2.5 mg/hr db 17:35 Follow up: Response: No adverse reaction; Blood pressure is lowered; IV Status: Order db to discontinue infusion; BP 149/81. MEDICATION STOPPED PER PROVIDER 17:00 Drug: predniSONE PO 40 mg Route: PO; db 17:44 Follow up: Response: No adverse reaction db 17:00 Drug: ZyrTEC - Cetirizine PO 10 mg Route: PO; db 17:44 Follow up: Response: No adverse reaction db 17:00 Drug: Famotidine PO 20 mg Route: PO; db 17:44 Follow up: Response: No adverse reaction db 17:00 Drug: Metoprolol PO 25 mg Route: PO; db 17:44 Follow up: Response: No adverse reaction db 17:08 Drug: Albuterol Inhalation 2.5 mg Route: Inhalation; db Disposition Summary: 04/22/23 17:42 Discharge Ordered Location: Home snw Condition: Stable snw Diagnosis - Hypertensive urgency snw - Bronchitis, not specified as acute or chronic snw Followup: snw - With: Emergency Department - When: As needed - Reason: Worsening of condition Followup: snw - With: Private Physician - When: 1 - 2 days - Reason: Recheck today's complaints, Continuance of care, Re-evaluation by your physician Discharge Instructions: - Discharge Summary Sheet snw - Chronic Bronchitis, Adult snw - Hypertension, Adult snw - How to Take Your Blood Pressure, [id number] snw - Form - Blood Pressure Record Sheet snw Forms: - Medication Reconciliation Form snw - Thank You Letter snw - Antibiotic Education snw - Prescription Opioid Use snw - Patient Portal [email or web address].htm snw Prescriptions: - albuterol sulfate 90 mcg/actuation Inhalation HFA Aerosol Inhaler - inhale 2 puff by INHALATION route every 6 hours for 8-10 days; 1 Unspecified; snw Refills: 0, Product Selection Permitted - Zyrtec 10 mg Oral Tablet - take 1 tablet by ORAL route once daily As needed; 20 tablet; Refills: 0, snw Product Selection Permitted - Pepcid 20 mg Oral Tablet - take 1 tablet by ORAL route once daily; 20 tablet; Refills: 0, Product snw Selection Permitted Signatures: Dispatcher [employer] EDMS Nena Cristobal FNP-C FNP-Jossie Thao RN RN ll1 Jailyn Stewart RN RN db Corrections: (The following items were deleted from the chart) 15:54 15:48 Abdomen/GI: Soft, non-tender, with normal bowel sounds. No distension or tympany. snw No guarding or rebound. No evidence of tenderness throughout. Back: No spinal tenderness. No costovertebral tenderness. Full range of motion. Skin: Warm, dry with normal turgor. Normal color with no rashes, no lesions, and no evidence of cellulitis. MS/ Extremity: Pulses equal, no cyanosis. Neurovascular intact. Full, normal range of motion. Neuro: Awake and alert, GCS 15, oriented to person, place, time, and situation. Cranial nerves II-XII grossly intact. Motor strength 5/5 in all extremities. Sensory grossly intact. Cerebellar exam normal. Normal gait. Psych: Awake, alert, with orientation to person, place and time. Behavior, mood, and affect are within normal limits. snw
--- NOTE | 2023-04-22 17:43 | ER ---
Nurse's Notes [facility] Name: Musa Sharif Age: 47 yrs Sex: Female : 1975 Arrival Date: 04/22/2023 Time: 14:32 Bed 8 Private MD: Diagnosis: Hypertensive urgency;Bronchitis, not specified as acute or chronic Presentation: 04/22 14:38 Ebola Screen: Patient denies travel to an Ebola-affected area in the 21 days before ll1 illness onset. Initial Sepsis Screen: Does the patient meet any 2 criteria? No. Patient's initial sepsis screen is negative. Does the patient have a suspected source of infection? No. Patient's initial sepsis screen is negative. Risk Assessment: Do you want to hurt yourself or someone else? Patient reports no desire to harm self or others. 14:38 Method Of Arrival: Ambulatory 1 14:38 Acuity: CHE 2 ll1 14:42 Chief complaint: Patient states: BP 180/110's today and yesterday. + TELLO, CP, and N/V. ll1 Coronavirus screen: Vaccine status: Patient reports being unvaccinated. Client denies travel out of the [place] in the last 14 days. At this time, the client does not indicate any symptoms associated with coronavirus-19. Onset of symptoms was April 21, 2023. Triage Assessment: 14:43 General: Appears uncomfortable, Behavior is calm, cooperative, appropriate for age. ll1 Pain: Complains of pain in head. 18:12 Headache History: The patient has had previous headaches and this one is different than db previous episodes. Pain: Also complains of no other associated symptoms. 18:12 Pain: Pain Pain began gradually. 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 - Social history:: Smoking status: Patient denies any tobacco usage or history of. Screenin:50 [facility] ED Fall Risk Assessment (Adult) History of falling in the last 3 months, db including since admission No falls in past 3 months (0 pts) Confusion or Disorientation No (0 pts) Intoxicated or Sedated No (0 pts) Impaired Gait No (0 pts) Mobility Assist Device Used No (0 pt) Altered Elimination No (0 pt) Score/Fall Risk Level 0 - 2 = Low Risk. 17:45 Abuse screen: Denies threats or abuse. Denies injuries from another. Nutritional db screening: No deficits noted. Tuberculosis screening: No symptoms or risk factors identified. Assessment: 16:30 Reassessment: Patient appears in no apparent distress at this time. Patient and/or db family updated on plan of care and expected duration. Pain level reassessed. Patient is alert, oriented x 3, equal unlabored respirations, skin warm/dry/pink. Reassessment: PT AMBULATORY TO RESTROOM. General: Appears in no apparent distress. comfortable, Behavior is calm, cooperative. Pain: Complains of pain in head. Neuro: Level of Consciousness is awake, alert, obeys commands, Oriented to person, place, time, situation. 17:14 Reassessment: Patient appears in no apparent distress at this time. Patient and/or db family updated on plan of care and expected duration. Pain level reassessed. Patient is alert, oriented x 3, equal unlabored respirations, skin warm/dry/pink. BREATHING TREATMENT IN PROGRESS. 17:45 Reassessment: Patient appears in no apparent distress at this time. Patient and/or db family updated on plan of care and expected duration. Pain level reassessed. Patient is alert, oriented x 3, equal unlabored respirations, skin warm/dry/pink. Patient states feeling better. Patient states symptoms have improved. Vital Signs: 14:42 BP 190 / 117; Pulse 110; Resp 17; Temp 97.6; Pulse Ox 100% on R/A; Weight 89.81 kg; ll1 Height 5 ft. 2 in. ; Pain 8/10; 16:07 BP 191 / 100; Pulse 101; Resp 16; Pulse Ox 100% on R/A; db 16:15 BP 165 / 102; Pulse 118; Resp 20; Pulse Ox 97% on R/A; db 16:30 BP 143 / 117; Pulse 113; Resp 18; Pulse Ox 99% ; db 16:39 BP 188 / 99; Pulse 122; Resp 20; Temp 98.4; Pulse Ox 98% on R/A; db 16:45 BP 157 / 108; Pulse 118; Resp 18; Pulse Ox 98% on R/A; db 17:00 BP 121 / 109; Pulse 118; Resp 20; Pulse Ox 98% on R/A; db 17:15 BP 149 / 95; Pulse 113; Resp 20; Pulse Ox 96% on R/A; db 17:30 BP 149 / 81; Pulse 112; Resp 18; Pulse Ox 97% on R/A; db 17:45 BP 152 / 85; Pulse 108; Resp 18; Pulse Ox 98% on R/A; db 14:42 Body Mass Index 36.21 (89.81 kg, 157.48 cm) ll1 14:42 Pain Scale: Adult ll1 17:00 NICARDIPINE DRIP RATE CHANGE SEE EMAR db ED Course: 14:36 Patient arrived in ED. im 14:36 Nena Cristobal FNP-C is PHCP. snw 14:36 Esteban Boykin MD is Attending Physician. snw 14:38 Arm band placed on. ll1 14:39 Triage completed. ll1 14:54 CT Head Brain wo Cont In Process Unspecified. EDMS 15:37 Jailyn Stewart, RN is Primary Nurse. db 16:03 Inserted saline lock: 22 gauge in right antecubital area, using aseptic technique. em1 16:19 Chest Single View XRAY In Process Unspecified. EDMS 17:45 Patient has correct armband on for positive identification. Bed in low position. Call db light in reach. Side rails up X 1. Provided Education on: FOLLOW UP WITH PCP. MONITOR BP AT HOME. 17:45 No provider procedures requiring assistance completed. IV discontinued, intact, db bleeding controlled, No redness/swelling at site. Administered Medications: 16:10 Drug: niCARdipine IV 5 mg/hr Route: IV; Rate: calculated rate; Site: right antecubital; db 16:49 Follow up: Rate change 7.5 mg/hr db 17:00 Follow up: Rate change 5 mg/hr db 17:31 Follow up: Rate change 2.5 mg/hr db 17:35 Follow up: Response: No adverse reaction; Blood pressure is lowered; IV Status: Order db to discontinue infusion; BP 149/81. MEDICATION STOPPED PER PROVIDER 17:00 Drug: predniSONE PO 40 mg Route: PO; db 17:44 Follow up: Response: No adverse reaction db 17:00 Drug: ZyrTEC - Cetirizine PO 10 mg Route: PO; db 17:44 Follow up: Response: No adverse reaction db 17:00 Drug: Famotidine PO 20 mg Route: PO; db 17:44 Follow up: Response: No adverse reaction db 17:00 Drug: Metoprolol PO 25 mg Route: PO; db 17:44 Follow up: Response: No adverse reaction db 17:08 Drug: Albuterol Inhalation 2.5 mg Route: Inhalation; db Medication: 17:45 VIS not applicable for this client. db Intake: Outcome: 17:42 Discharge ordered by MD. hoskins 17:45 Discharged to home ambulatory. db 17:45 Condition: stable 17:45 Discharge instructions given to patient, Instructed on discharge instructions, follow up and referral plans. Prescriptions given X 3. 18:12 Patient left the ED. db Signatures: Dispatcher [employer] EDMS Nena Cristobal FNP-C FNP-Bharath Oakes em1 Jossie Moody RN RN ll1 Jailyn Stewart RN RN db Khadijah Kong Corrections: (The following items were deleted from the chart) 14:44 14:38 Acuity: CHE 3 ll1 ll1 14:44 14:42 Chief complaint: Patient states: BP 180/110's today and yesterday. + TELLO and N/V ll1 ll1
[2023-04-22 19:02] VITALS: TEMP 98.4
[2023-04-22 19:11] VITALS: BP 152/85; O2SAT 98
== END 2023-04-22 18:12 | disposition home or self-care (01) ==
LOC: ER 14:32
DX: I16.0 Hypertensive urgency (principal); J40 Bronchitis, not specified as acute or chronic; Z20.822 Contact with and (suspected) exposure to COVID-19; Z88.3 Allergy status to other anti-infective agents
CPT/HCPCS: 87070; 85025; 81001; 36415; 82550; 87081; 84443; 84439; 80053; 87635; 87804 ×2; 70450; 71045; J7512; J7613

== ENCOUNTER 2024-06-02 09:15 | Emergency (ER) | payer OTHER ==
[2024-06-02] MEDS ORDERED: DIPHENHYDRAMINE 50 MG/ML VIAL ONE (10:25)
[2024-06-02] MEDS ORDERED: KETOROLAC 30 MG/ML INJ ONE (10:25)
[2024-06-02] MEDS ORDERED: NA CHLORIDE 0.9% 1,000 ML ONE (10:26)
[2024-06-02 10:35] LABS: Absolute Basophils 0.1 K/uL (0-0.5); Absolute Eosinophils 0.1 K/uL (0-0.5); Absolute Lymphocytes (CBC) 1.7 K/uL (0.7-4.9); Absolute Monocytes 0.6 K/uL (0.1-1.3); Absolute Neutrophil 6.9 K/uL (1.8-8.0); Basophils % 0.6 % (0-1.3); Eosinophils % 0.9 % (0-4.4); Hematocrit 38.5 % (36.0-45.0); Hemoglobin 12.4 g/dL (12.0-15.0); Lymphocytes % 18.5 % (15.3-44.8); MCH 27.4 pg (27.0-35.0); MCHC 32.3 g/dL (32.0-36.0); MCV 85.1 fL (80-100); MPV 7.6 fL (7.6-11.3); Monocytes % 6.3 % (3.3-12.3); Neutrophils % 73.7 % (41.7-73.7); Platelets 317 thou/uL (152-406); RBC Red Blood Cell Count 4.52 M/uL (3.86-4.86); Red Cell Distribution Width 15.4 % (12.1-15.2)
[2024-06-02 10:54] LABS: Anion Gap 12.6 mEq/L (5.0-15.0); Potassium 3.6 mEq/L (3.5-5.1); Troponin High Sensitivity 3.8 pg/mL (<58.9)
--- NOTE | 2024-06-02 11:11 | RAD REPORT ---
EXAM DESCRIPTION: CT - Head Brain Wo Cont - 06/02/2024 10:56 am CLINICAL HISTORY: Headache COMPARISON: 2022 TECHNIQUE: Computed axial tomography of the head was obtained. IV contrast was not requested. All CT scans are performed using dose optimization technique as appropriate and may include automated exposure control or mA/KV adjustment according to patient size. FINDINGS: An intracranial bleed is not seen The ventricles are normal in caliber No extra-axial fluid collection is noted. Empty sella turcica. Mild cerebellar tonsillar ectopia. Mild low-density areas within periventricular, deep and subcortical white matter may represent ischem ic changes secondary to small vessel disease Fluid within the sinuses/ mastoids is not seen. IMPRESSION: No acute intracranial abnormality is seen If patient's symptoms persist MRI of the brain would be recommended
--- NOTE | 2024-06-02 11:16 | RAD REPORT ---
EXAM DESCRIPTION: CTMaxillofacial W/Cont06/02/2024 10:56 am CLINICAL HISTORY: Left facial pain and swelling COMPARISON: None. TECHNIQUE: Computed axial tomography of the face obtained with coronal and sagittal reconstruction. 50 cc Isovue-[address] scans are performed using dose optimization technique as appropriate and may include automated exposure control or mA/KV adjustment according to patient size. FINDINGS: Dental caries and apical tooth abscesses are present. Edema is present within the tissue superficial to the left mandible. No soft tissue abscess seen. Visualized airway unremarkable. Parapharyngeal fat clear. Fluid within the sinuses is not seen IMPRESSION: Dental caries and apical tooth abscesses I edema within the tissue superficial to the left mandible probably of cellulitis .
--- NOTE | 2024-06-02 11:42 | EDPHYS ---
Physician Documentation [facility] Name: Musa Sharif Age: 49 yrs Sex: Female : 1975 Arrival Date: 06/02/2024 Time: 09:15 Bed 16 Private MD: ED Physician Dustin Solis HPI: 06/02 09:40 This 49 yrs old Female presents to ER via Ambulatory with complaints of ec2 Headache, Chest Pain, Neck Swelling, Eye Problem, Jaw Pain. 09:40 Patient arrives today for evaluation of multiple complaints including headache, chest ec2 pain, facial swelling, neck pain, reported hamilton of the skin of the bilateral mandible areas that waxes and wanes. She reports that she has been having headaches for years that she takes ibuprofen for with some improvement in symptoms.. 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 - Infectious Disease History:: Denies. - Social history:: Smoking status: Patient denies any tobacco usage or history of. ROS: 09:41 Constitutional: as per hpi ec2 Exam: 09:41 Constitutional: GEN: NAD Head: atraumatic Eyes: EOMI Ears: External ears are ec2 normal. CV: Tachycardia LUNGS: no respiratory distress ABD: non-distended SKIN: no evidence of rashes MSK: no evidence of trauma. Neuro: Cranial nerves II through XII intact, strength intact in all extremities. Sensation intact throughout. Vital Signs: 09:28 BP 158 / 87; Pulse 104; Resp 16; Temp 98.3; Pulse Ox 100% ; dd2 09:55 Pulse 97; ec2 11:21 BP 136 / 74; Resp 18; Pulse Ox 98% on R/A; kj2 11:43 BP 140 / 87; Pulse 87; Resp 18; Temp 98.2; Pulse Ox 99% on R/A; kj2 MDM: 09:22 Patient medically screened. ec2 09:41 Data reviewed: vital signs. ec2 09:42 ED course: patient arrives today for evaluation of multiple complaints as listed above. ec2 Intact neurologic examination. Will obtain lab work, CT imaging, treat patient symptoms. Differential includes processes such as electrolyte disturbances, renal dysfunction, anemia, intracranial mass.. 09:54 ED course: EKG independently reviewed and interpreted by me, shows normal sinus rhythm, ec2 rate of 97, no acute ST segment elevations, intervals are nonconcerning.. 11:03 ED course: Metabolic profile reassuring, CBC reassuring, troponin within normal ranges..ec2 11:39 ED course: CT imaging shows facial cellulitis. Will discharge home, starting ec2 antibiotics. Return precautions given.. 11:48 ED course: Chest x-ray independently reviewed and interpreted by me, shows no acute ec2 intrathoracic process.. 06/02 09:36 Order name: Basic Metabolic Panel; Complete Time: 11:03 ec2 06/02 09:36 Order name: CBC with Diff; Complete Time: 11:03 ec2 06/02 09:36 Order name: Troponin HS; Complete Time: 11:03 ec2 06/02 09:36 Order name: XRAY Chest (1 view); Complete Time: 11:49 ec2 06/02 09:36 Order name: CT Head Brain wo Cont; Complete Time: 11:39 ec2 06/02 09:36 Order name: CT Maxillofacial W/cont; Complete Time: 11:39 ec2 06/02 09:36 Order name: EKG; Complete Time: 09:36 ec2 06/02 09:36 Order name: Cardiac monitoring; Complete Time: 09:55 ec2 06/02 09:36 Order name: EKG - Nurse/Tech; Complete Time: 09:54 ec2 06/02 09:36 Order name: IV Saline Lock; Complete Time: 10:27 ec2 06/02 09:36 Order name: Labs collected and sent; Complete Time: 10:27 ec2 06/02 09:36 Order name: O2 Per Protocol; Complete Time: 09:44 ec2 06/02 09:36 Order name: O2 Sat Monitoring; Complete Time: 09:44 ec2 Administered Medications: 10:40 Drug: Droperidol IVP 2.5 mg IVP once Route: IVP; Site: right antecubital; kj2 11:20 Follow up: Response: No adverse reaction kj2 10:42 Drug: diphenhydrAMINE IVP 50 mg IVP once Route: IVP; Site: right antecubital; kj2 11:20 Follow up: Response: No adverse reaction kj2 10:44 Drug: NS 0.9% IV 1000 ml IV at 1 bolus Per protocol; 1000 mL bolus Route: IV; Rate: 1 kj2 bolus; Site: right antecubital; 11:45 Follow up: Response: No adverse reaction; IV Status: Completed infusion; IV Intake: kj2 1000ml 10:45 Drug: Ketorolac IVP 15 mg IVP once Route: IVP; Site: right antecubital; kj2 11:19 Follow up: Response: No adverse reaction; Pain is decreased kj2 11:55 Drug: Trimethoprim-Sulfamethoxazole PO (160 mg-800 mg (DS) 1 tablet PO once Route: PO; kj2 11:55 Follow up: Response: No adverse reaction; Medication administered at discharge. kj2 Disposition Summary: 06/02/24 11:41 Discharge Ordered Notes: Location: Home ec2 Condition: Stable ec2 Diagnosis - Cellulitis of face ec2 Followup: ec2 - With: Private Physician - When: - Reason: Re-evaluation by your physician Discharge Instructions: - Discharge Summary Sheet ec2 - Cellulitis, Adult ec2 Forms: - Medication Reconciliation Form ec2 - Antibiotic Education ec2 - Prescription Opioid Use ec2 - Patient Portal Instructions ec2 - Leadership Thank You Letter ec2 Prescriptions: - Bactrim DS 800-160 mg Oral Tablet - take 1 tablet ORAL route every 12 hours for 7 days; 14 tablet; Refills: 0, ec2 Product Selection Permitted Signatures: Dispatcher [employer] Dustin Harmon MD MD ec2 Qiana Lazar RN RN kj2 JAVON SNOW RN RN dd2 Corrections: (The following items were deleted from the chart) 09:33 09:30 PSHx: None; dd2 dd2 09:37 09:36 BASIC METABOLIC PANEL+C.LAB.BRZ ordered. EDMS EDMS 09:37 09:36 CBC+H.LAB.BRZ ordered. EDMS EDMS 09:37 09:36 Troponin High Sensitivity+C.LAB.BRZ ordered. EDMS EDMS 09:37 09:37 Maxillofacial W/Cont+CT.RAD.BRZ ordered. EDMS EDMS 09:42 09:41 Constitutional: GEN: NAD Head: atraumatic Eyes: EOMI Ears: External ears are ec2 normal. CV: regular rate LUNGS: no respiratory distress ABD: non-distended SKIN: no evidence of rashes MSK: no evidence of trauma. Neuro: Cranial nerves II through XII intact, strength intact in all extremities. Sensation intact throughout. ec2
--- NOTE | 2024-06-02 11:42 | ER ---
Nurse's Notes [facility] Name: Musa Sharif Age: 49 yrs Sex: Female : 1975 Arrival Date: 06/02/2024 Time: 09:15 Bed 16 Private MD: Diagnosis: Cellulitis of face Presentation: 06/02 09:28 Chief complaint: Patient states: Pt states headache for 2 weeks and head swelling for 2 dd2 days and chest pain for a couple years. Coronavirus screen: At this time, the client does not indicate any symptoms associated with coronavirus-19. Ebola Screen: No symptoms or risks identified at this time. Initial Sepsis Screen: Does the patient meet any 2 criteria? No. Patient's initial sepsis screen is negative. Does the patient have a suspected source of infection? No. Patient's initial sepsis screen is negative. Risk Assessment: Do you want to hurt yourself or someone else? Patient reports no desire to harm self or others. Onset of symptoms is unknown. 09:28 Method Of Arrival: Ambulatory dd2 09:28 Acuity: CHE 3 dd2 Triage Assessment: 09:30 Headache History: The patient has had previous headaches and this one is similar to dd2 previous episodes. General: Appears in no apparent distress. Behavior is calm, cooperative. Pain: Complains of pain in HEAD, FACE AND CHEST Pain currently is 7 out of 10 on a pain scale. Pain began 2 WEEKS AGO Also complains of nausea. EENT: No deficits noted. Neuro: Reports headache in entire. Cardiovascular: Chest pain began PT STATES YEARS AGO. Respiratory: No deficits noted. GI: No deficits noted. : No deficits noted. Derm: No deficits noted. Musculoskeletal: No deficits noted. 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 - Infectious Disease History:: Denies. - Social history:: Smoking status: Patient denies any tobacco usage or history of. Screenin:36 [facility] ED Fall Risk Assessment (Adult) History of falling in the last 3 months, dd2 including since admission No falls in past 3 months (0 pts) Confusion or Disorientation No (0 pts) Intoxicated or Sedated No (0 pts) Impaired Gait No (0 pts) Mobility Assist Device Used No (0 pt) Altered Elimination No (0 pt) Score/Fall Risk Level 0 - 2 = Low Risk. [facility] ED Fall Risk Assessment (Adult) Score/Fall Risk Level. Abuse screen: Denies threats or abuse. Nutritional screening: No deficits noted. Tuberculosis screening: No symptoms or risk factors identified. Assessment: 09:36 Reassessment: SEE TRIAGE NOTE. dd2 10:46 General: Appears in no apparent distress. Behavior is calm, cooperative. Pain: kj2 Complains of pain in generalized Pain currently is 8 out of 10 on a pain scale. Neuro: Level of Consciousness is awake, alert, obeys commands, Oriented to person, place, time, situation. Cardiovascular: Patient's skin is warm and dry. Respiratory: Airway is patent Respiratory effort is unlabored. 11:21 Reassessment: Patient appears in no apparent distress at this time. Patient and/or kj2 family updated on plan of care and expected duration. Pain level reassessed. Patient is alert, oriented x 3, equal unlabored respirations, skin warm/dry/pink. Vital Signs: 09:28 BP 158 / 87; Pulse 104; Resp 16; Temp 98.3; Pulse Ox 100% ; dd2 09:55 Pulse 97; ec2 11:21 BP 136 / 74; Resp 18; Pulse Ox 98% on R/A; kj2 11:43 BP 140 / 87; Pulse 87; Resp 18; Temp 98.2; Pulse Ox 99% on R/A; kj2 ED Course: 09:19 Patient arrived in ED. im 09:20 JAVON SNOW, DHARMESH is Primary Nurse. dd2 09:22 Dustin Solis MD is Attending Physician. ec2 09:30 Triage completed. dd2 09:30 Arm band placed on right wrist. Patient placed in an exam room, on a stretcher, on dd2 oxygen. 09:36 Patient has correct armband on for positive identification. Bed in low position. Call dd2 light in reach. Side rails up X 1. Provided Education on: CALL LIGHT, PROCEDURES. 09:36 No provider procedures requiring assistance completed. dd2 09:58 XRAY Chest (1 view) In Process Unspecified. EDMS 10:34 Initial lab(s) drawn, by me, sent to lab. Inserted saline lock: 20 gauge in right dd2 antecubital area, using aseptic technique. Blood collected. Flushed with 10 mL NS. 10:57 CT Head Brain wo Cont In Process Unspecified. EDMS 10:58 CT Maxillofacial W/cont In Process Unspecified. EDMS 11:54 IV discontinued, intact, bleeding controlled, No redness/swelling at site. Pressure kj2 dressing applied. Administered Medications: 10:40 Drug: Droperidol IVP 2.5 mg IVP once Route: IVP; Site: right antecubital; kj2 11:20 Follow up: Response: No adverse reaction kj2 10:42 Drug: diphenhydrAMINE IVP 50 mg IVP once Route: IVP; Site: right antecubital; kj2 11:20 Follow up: Response: No adverse reaction kj2 10:44 Drug: NS 0.9% IV 1000 ml IV at 1 bolus Per protocol; 1000 mL bolus Route: IV; Rate: 1 kj2 bolus; Site: right antecubital; 11:45 Follow up: Response: No adverse reaction; IV Status: Completed infusion; IV Intake: kj2 1000ml 10:45 Drug: Ketorolac IVP 15 mg IVP once Route: IVP; Site: right antecubital; kj2 11:19 Follow up: Response: No adverse reaction; Pain is decreased kj2 11:55 Drug: Trimethoprim-Sulfamethoxazole PO (160 mg-800 mg (DS) 1 tablet PO once Route: PO; kj2 11:55 Follow up: Response: No adverse reaction; Medication administered at discharge. kj2 Medication: 09:36 VIS not applicable for this client. dd2 Intake: 11:45 IV: 1000ml; Total: 1000ml. kj2 Outcome: 11:41 Discharge ordered by . ec2 11:44 Discharged to home ambulatory, with family, kj2 11:44 Condition: stable 11:44 Discharge instructions given to patient, Instructed on discharge instructions, follow up and referral plans. Demonstrated understanding of instructions, follow-up care, 11:56 Patient left the ED. kj2 Signatures: Dispatcher [employer] EDMS Khadijah Kong Edwin, MD MD ec2 Qiana Lazar RN RN kj2 JAVON SNOW RN RN dd2 Corrections: (The following items were deleted from the chart) 33 09:30 PSHx: None; dd2 dd2
--- NOTE | 2024-06-02 11:47 | RAD REPORT ---
EXAM DESCRIPTION: Yovany Single View06/02/2024 9:56 am CLINICAL HISTORY: Chest pain COMPARISON: 2022 FINDINGS: Exam is now being submitted for interpretation. The lungs appear clear of acute infiltrate. The heart is normal size IMPRESSION: No acute abnormalities displayed
[2024-06-02] MEDS ORDERED: SMZ./TMP. 800/160 MG TABLET ONE (11:49)
[2024-06-02 12:22] VITALS: BP 140/87; TEMP 98.2; O2SAT 99
--- NOTE | 2024-06-03 13:31 | EKG ---
Test Date: 2024-06-02 Test Time: 09:51:49 Companion Caregiver: MIGNON MEASUREMENT RESULTS: Intervals: Rate: 97 HI: 138 QRSD: 82 QT: 360 QTc: 457 [place]: P: 66 HI: 138 QRS: 37 T: 18 INTERPRETIVE STATEMENTS: Normal sinus rhythm Normal ECG Compared to ECG 06/09/2021 05:21:05 ST (T wave) deviation no longer present Electronically Signed On 06-03-24 13:28:12 CDT by Ian Baeza
== END 2024-06-02 11:56 | disposition home or self-care (01) ==
LOC: ER 09:15
DX: L03.211 Cellulitis of face (principal); I10 Essential (primary) hypertension; M32.9 Systemic lupus erythematosus, unspecified; Z88.1 Allergy status to other antibiotic agents
CPT/HCPCS: 96361; 93005; 85025; 80048; 36415; 84484; 70450; 70487; 71045; 96375; 96374; 99285; Q9967; J1200; J7030